=== PATIENT | female | born 1960 | race African-American/Black ===

== ENCOUNTER 2020-12-16 09:59 | Emergency (ER) | payer MEDICARE, SELFPAY ==
--- NOTE | 2020-12-16 10:17 | ED.URI ---
HPI - URI/Sore Throat General Chief Complaint: Upper Respiratory Infection Stated Complaint: Cough,Congestion Time Seen by Provider: 12/16/20 10:19 Source: patient and RN notes reviewed Mode of arrival: ambulatory Limitations: no limitations History of Present Illness HPI Narrative: 60 yo female presents to the [facility] with C/O SOB and cough. Patient reports that she has that COPD and has no plan to quit smoking. States that her primary provider normally gives her a Z-Elijah, prednisone and inhaler. Patient reports that she has plenty inhalers and nebulizer treatments at home. Has not used 1 since yesterday. Denies fevers. No known exposures to Covid. States she has received her vaccine. Denies chest pain. Denies abdominal pain. Denies fevers, nausea, vomiting or diarrhea. Patient in no acute distress Related Data Allergies Allergy/AdvReac Type Severity Reaction Status Date / Time No Known Allergies Allergy Verified 07/14/19 10:51 Review of Systems Review of Systems: Narrative: CONSTITUTIONAL: Denies fever, chills, or sweats. EYES: Denies visual changes, redness, or discharge. ENT: Denies rhinorrhea, congestion, sore throat, or otalgia. CARDIOVASCULAR: Denies chest pain, palpitations, or edema. RESPIRATORY: Reports cough with occasional dyspnea. GASTROINTESTINAL: Denies abdominal pain, nausea, vomiting, or diarrhea. MUSCULOSKELETAL: Denies back pain, joint pain, or myalgia. NEUROLOGIC: Denies headache, numbness, or weakness. PSYCHIATRIC: Denies anxiety or depression. All other systems reviewed are negative, except as documented in HPI. [facility] Past Medical History Medical History (Updated 12/16/20 @ 18:21 by Elsie Pop) COPD (chronic obstructive pulmonary disease) Hypertension Seasonal allergies Comments At the time of my signature, I reviewed and agree with the nursing past medical, surgical, social, and family history. There is no relevant family history pertinent to the patient complaint. Exam Narrative: Exam Narrative: GENERAL: This is a well-nourished, well-developed patient, in no apparent distress. HEAD: normocephalic, atraumatic. EYES: PERRL. Sclera clear/white. Vision is grossly intact. EARS: External ears normal, auditory canals clear and without drainage, TMs normal without perforation. Hearing grossly intact. NOSE: External nose normal with no obvious nasal discharge, nares without redness, no rhinorrhea. THROAT: Mucous membranes moist, posterior pharynx clear. NECK: Neck supple, non-tender without lymphadenopathy, masses or thyromegaly. CARDIOVASCULAR: Regular rate and rhythm without murmurs, gallops, or rubs. RESPIRATORY: Clear to auscultation. Breath sounds equal bilaterally. No wheezes, rales, or rhonchi. Strong cough noted with deep breathing. GASTROINTESTINAL: Abdomen soft, non-tender, nondistended. SKIN: warm, intact with no suspicious lesions or rash, good texture and turgor. NEURO: awake, alert, and oriented to person, place and time. There were no obvious focal neurologic abnormalities. EXTREMITIES: No joint tenderness, effusion, or edema noted. BACK: Nontender without deformity. Course Course Emergency Course: Discussed with patient to quit smoking. Discussed treatment plan along with using that home nebulizers 3 times a day. Patient agreed with plan Vital Signs Vital signs: Vital Signs Temperature 97.4 F L 12/16/20 10:23 Pulse Rate 64 12/16/20 10:23 Respiratory Rate 20 12/16/20 10:23 Blood Pressure 139/75 12/16/20 10:23 Pulse Oximetry 95 12/16/20 10:23 Temperature 97.4 F L 12/16/20 10:23 Pulse Rate 64 12/16/20 10:23 Respiratory Rate 20 12/16/20 10:23 Blood Pressure 139/75 12/16/20 10:23 Pulse Oximetry 95 12/16/20 10:23 Reviewed MDM - URI/Sore Throat MDM Narrative Medical decision making narrative: Discharge instructions reviewed with patient, as well as provided in writing per nursing staff. The instructions also include specific and s
[2020-12-16 10:23] VITALS: BP 139/75; PULSE 64; RESP 20; TEMP 36.3; O2SAT 95
== END 2020-12-16 10:56 | disposition home or self-care (01) ==
PROVIDERS: Emergency Provider Nurse Practitioner
DX: J40 Bronchitis, not specified as acute or chronic (principal); Z20.822 Contact with and (suspected) exposure to COVID-19; J44.9 Chronic obstructive pulmonary disease, unspecified; I10 Essential (primary) hypertension
CPT/HCPCS: 87426; 99213; C9803; G0463

== ENCOUNTER 2021-03-13 18:47 | Emergency (ER) | payer MEDICARE, SELFPAY ==
--- NOTE | ~2021-03-13 | XR_ITS ---
EXAMINATION: XR chest 2V EXAM DATE: 03/13/2021 19:10 INDICATION: Cough , hx copd TECHNIQUE: Frontal and lateral projections of the chest obtained and reviewed. Comparison is made to prior examination from 03/06/2013. FINDINGS: The lungs are clear. There are no pleural effusions. The cardiomediastinal silhouette is within normal limits. There is no pneumothorax suspected. The bones and soft tissues are unremarkab le. IMPRESSION: No acute cardiopulmonary findings. Reviewed, dictated and finalized at location A.
[2021-03-13 18:53] VITALS: BP 146/65; PULSE 65; RESP 20; TEMP 36.5; O2SAT 96
--- NOTE | 2021-03-13 18:58 | ED.URI ---
HPI - URI/Sore Throat General Chief Complaint: Upper Respiratory Infection Stated Complaint: Congestion Time Seen by Provider: 03/13/21 19:01 Source: patient and RN notes reviewed Mode of arrival: ambulatory Limitations: no limitations History of Present Illness HPI Narrative: 60-year-old female presents to the [facility] with cough, productive cough, for the last couple of days. States that she tried calling her primary care, was unable to get in. Patient does have a history of COPD, chronic bronchitis. Patient is a smoker, educated to stop smoking, patient states I will never stop smoking, its something I enjoy. Patient states that she used her home nebulizer treatment just prior to arrival. States she feels little bit better but think she needs some steroid and antibiotics. Denies chest pain, has intermittent shortness of breath. Last exacerbation she believed was December. Related Data Home Medications Medication Instructions Recorded Confirmed albuterol sulfate 2 inh INHALATION DIRECTED 03/13/21 03/13/21 ipratropium-albuterol 3 ml INHALATION DIRECTED 03/13/21 03/13/21 nebivolol [Bystolic] 10 mg PO DAILY 03/13/21 03/13/21 simvastatin 20 mg PO DAILY 03/13/21 03/13/21 spironolactone 25 mg PO DAILY 03/13/21 03/13/21 Allergies Allergy/AdvReac Type Severity Reaction Status Date / Time No Known Allergies Allergy Verified 03/13/21 18:53 Review of Systems Review of Systems: All systems reviewed & are unremarkable except as noted in HPI and below Constitutional: Constitutional: Reports no additional constitutional complaints, Denies chills and Denies fever(s) Eyes: Eyes: Reports no additional eye complaints ENT: Reports system reviewed and no additional complaints, except as documented and Denies sore throat Cardiovascular: Cardiovascular: Reports no additional cardiovascular complaints and Denies chest pain Respiratory: Respiratory: Reports cough, Reports dyspnea and Reports wheezing Gastrointestinal: Gastrointestinal: Reports no additional gastrointestinal complaints Musculoskeletal: Musculoskeletal: Reports no additional musculoskeletal complaints Integumentary/Breasts: Skin/Breast: Reports system reviewed and no additional complaints, except as docu Neurologic: Reports system reviewed and no additional complaints, except as documented Psychiatric: Psychiatric: Reports no additional psychiatric complaints Allergic/Immunologic: Allergic/Immunologic: Reports no additional allergic/immunologic complaints [facility] Past Medical History Medical History (Updated 07/06/21 @ 00:00 by Background Daemon) COPD (chronic obstructive pulmonary disease) Hypertension Seasonal allergies Comments At the time of my signature, I reviewed and agree with the nursing past medical, surgical, social, and family history. There is no relevant family history pertinent to the patient complaint. Exam Const: General: no acute distress and ill appearing chronically Nutritional Appearance: well nourished and obese Orientation/consciousness: patient oriented x3 HENMT: Head: normal to inspection Ears: external ears normal, TM's normal bilaterally and Abnormal EAC present Eyes: Pupils: Equal, round and reactive pupils present Neck: Neck: normal visual inspection, no lymphadenopathy and no meningeal signs Chest: Chest palpation & inspection: normal inspection of the chest Resp: Effort & Inspection: normal respiratory effort and no use of accessory muscles Auscultation: wheezes scattered wheezes and diminished lung sounds bilateral in the lower lung molina Cardio: Rate: regular rate Rhythm: regular rhythm Back/Spine/Pelvis: Back: no CVA tenderness Skin: General skin exam: normal color Rashes: no rashes Neuro: General: patient oriented x3, moves all extremities, no meningeal signs and no focal motor deficits Speech: normal speech Gait exam (Neuro): Normal gait present Extrem: General: normal to inspection Psych:
== END 2021-03-13 19:24 | disposition home or self-care (01) ==
PROVIDERS: Emergency Provider Nurse Practitioner; PCP Internal Medicine
DX: J40 Bronchitis, not specified as acute or chronic (principal); J44.9 Chronic obstructive pulmonary disease, unspecified; I10 Essential (primary) hypertension
CPT/HCPCS: 71046; 99213; G0463

== ENCOUNTER 2021-07-03 02:03 | Emergency (ER) | payer MEDICARE, SELFPAY ==
[2021-07-03] VITALS (14 sets, daily range): BP systolic 160–196; BP diastolic 70–173; PULSE 57–78; RESP 17–35; TEMP 36.6; O2SAT 95–100
--- NOTE | ~2021-07-03 | XR_ITS ---
EXAMINATION: XR chest 1V portable INDICATION: Shortness of breath TECHNIQUE: Portable AP chest at 0310 hours COMPARISON: 03/13/2021 FINDINGS: The lungs are free of acute opacities. There is no pleural effusion or pneumothorax. The ca rdiomediastinal silhouette is normal. IMPRESSION: 1. No acute cardiopulmonary abnormality. Reviewed, dictated and finalized at location A.
--- NOTE | 2021-07-03 02:23 | ECG_ITS ---
Measurements Intervals [place] Rate: 64 P: 68 NM: 159 QRS: 61 QRSD: 97 T: 37 QT: 404 QTc: 420 Interpretive Statements SINUS RHYTHM BASELINE ARTIFACT- I, II, III, AVR, AVL, AVF, V1-V6 NORMAL ECG Electronically Signed On 07-03-2021 8:48:31 CDT by Jaspreet Henriquez D.O.
--- NOTE | 2021-07-03 02:31 | ED.GENADULT ---
HPI - General Adult General Chief complaint: Shortness of Breath/Dyspnea Stated complaint: sob with tripod,87% ra- cpap placed Time Seen by Provider: 07/03/21 02:26 History of Present Illness HPI narrative: Patient 61-year-old female presents emerged department with chief complaint of shortness of breath. The patient reports she has history of COPD and has had a little of a cough for the last several days patient reports that she started getting shortness of breath this evening called EMS and was found to be saturating in the 80s by EMS. Patient was given nebulizer treatments in route and started on CPAP by EMS in the prehospital setting. Upon arrival to the emergency department patient is still tachypneic and reports that she still feels short of breath but is much better. Patient also reported she noticed that her blood pressure was running on the high side whenever all these events occurred. Related Data Home Medications Medication Instructions Recorded Confirmed albuterol sulfate 2 inh INHALATION DIRECTED 03/13/21 03/13/21 ipratropium-albuterol 3 ml INHALATION DIRECTED 03/13/21 03/13/21 nebivolol [Bystolic] 10 mg PO DAILY 03/13/21 03/13/21 simvastatin 20 mg PO DAILY 03/13/21 03/13/21 spironolactone 25 mg PO DAILY 03/13/21 03/13/21 Allergies Allergy/AdvReac Type Severity Reaction Status Date / Time No Known Allergies Allergy Verified 03/13/21 18:53 Review of Systems Review of Systems: A 10 system review of systems was completed on the patient and is negative except for what is stated in the HPI. Nursing and ancillary documentation was reviewed. PENDING SALE TO [facility] Past Medical History Medical History COPD (chronic obstructive pulmonary disease) Hypertension Seasonal allergies Exam Narrative: GENERAL: Well-appearing, well-nourished, and in no acute distress. HEAD: Normocephalic, atraumatic. EYES: PERRLA and EOMI. ENT: Nares clear, no rhinorrhea or epistaxis. Mucous membranes moist. NECK: Supple. CHEST: Scattered expiratory wheezes mild respiratory distress on CPAP. HEART: Regular rate and rhythm. No murmur heard. Normal peripheral pulses. ABDOMEN: Soft, nontender, nondistended, normal active bowel sounds. EXTREMITIES: Normal range of motion. No edema. SKIN: Warm, dry, no rash. NEURO: No focal deficits. Alert and oriented x3. PSYCH: Normal mood and affect. Course Course Emergency Course: EKG is sinus rhythm rate of [address] elevation or ST depression Vital Signs Vital signs: Vital Signs Temperature 36.6 C 07/03/21 02:06 Pulse Rate 72 07/03/21 02:06 Respiratory Rate 25 H 07/03/21 02:06 Blood Pressure 165/90 H 07/03/21 02:06 Pulse Oximetry 100 07/03/21 02:06 Temperature 36.6 C 07/03/21 02:06 Pulse Rate 57 L 07/03/21 03:54 Respiratory Rate 22 H 07/03/21 03:54 Blood Pressure 166/92 H 07/03/21 02:48 Pulse Oximetry 100 07/03/21 04:36 Medical Decision Making Vital Signs Vital Signs: Vital Signs Temperature 36.6 C 07/03/21 02:06 Pulse Rate 72 07/03/21 02:06 Respiratory Rate 25 H 07/03/21 02:06 Blood Pressure 165/90 H 07/03/21 02:06 Pulse Oximetry 100 07/03/21 02:06 Temperature 36.6 C 07/03/21 02:06 Pulse Rate 57 L 07/03/21 03:54 Respiratory Rate 22 H 07/03/21 03:54 Blood Pressure 166/92 H 07/03/21 02:48 Pulse Oximetry 100 07/03/21 04:36 Lab Data Result diagrams: 07/03/21 02:31 07/03/21 02:31 Labs: Lab Results 07/03/21 07/03/21 07/03/21 Range/Units 02:31 02:31 02:31 WBC 11.3 H (4.5-10.0) K/mm3 RBC 4.99 (4.2-5.4) M/mm3 Hgb 14.7 (12.0-15.0) g/dL Hct 45.0 (37.0-47.0) % MCV 90.2 (80-100) fl MCH 29.5 (26-34) pg MCHC 32.7 (32-36) g/dl RDW 14.5 (11.5-14.5) % Plt Count 205 (150-375) k/mm3 MPV 10.1 (7.4-10.4) fl Immature Gran % (Auto) 0.3 (0-0.5) % Neut % (Auto) 56.7 (45.5-73.1) %
[2021-07-03 02:36] LABS: Basophils Percent Auto 0.2 % (0.2-1.2); Eosinophils Absolute Auto 1.2 K/mm3 (0-0.3); Eosinophils Percent Auto 10.9 % (0-4.4); Hemoglobin 14.7 g/dL (12.0-15.0); Immature Granulocyte Absolute 0.03 K/mm3 (0.00-0.031); Immature Granulocyte Percent A 0.3 % (0-0.5); Lymphocytes Absolute Auto 2.86 K/mm3 (0.9-3.2); Lymphocytes Percent Auto 25.3 % (18.3-44.2); Mean Corpuscular HGB Conc 32.7 g/dl (32-36); Mean Corpuscular Hemoglobin 29.5 pg (26-34); Mean Corpuscular Volume 90.2 fl (80-100); Mean Platelet Volume 10.1 fl (7.4-10.4); Monocytes Absolute Auto 0.7 K/mm3 (0.1-0.6); Monocytes Percent Auto 6.6 % (2.6-8.5); Neutrophils Absolute Auto 6.4 K/mm3 (1.3-6.7); Neutrophils Percent Auto 56.7 % (45.5-73.1); Platelet Count Result 205 k/mm3 (150-375); Red Blood Count 4.99 M/mm3 (4.2-5.4); Red Cell Distribution Width 14.5 % (11.5-14.5); White Blood Count 11.3 K/mm3 (4.5-10.0)
[2021-07-03 02:50] LABS: Lactic Acid Reflex 0.8 mmol/L (0.7-2.1)
[2021-07-03 02:52] LABS: Alanine Aminotransferase 16 U/L (4-35); Albumin Level 4.4 g/dL (3.5-5.1); Alkaline Phosphatase 82 U/L (38-126); Anion Gap 7 mmol/L (8-16); Aspartate Amino Transferase 28 U/L (14-36); Bilirubin,Total 0.4 mg/dL (0.2-1.3); Blood Urea Nitrogen 14 mg/dL (7-17); Calcium 9.8 mg/dL (8.4-10.2); Carbon Dioxide 28 mmol/L (22-30); Chloride 106 mmol/L (98-107); Estimated CRCL calculation 70 ml/min; Estimated Glomerular Filt Rate > 60; Glucose 118 mg/dL (65-110); Magnesium 1.7 mg/dL (1.6-2.3); Potassium 4.1 mmol/L (3.4-5.0); Sodium 141 mmol/L (137-145)
[2021-07-03] MEDS: methylPREDNISolone SOD SUCC 125 MG VIAL IV PUSH (02:53)
[2021-07-03 02:56] LABS: Alveolar/Arterial O2 Gradient 79.7 mmHg; Base Excess ABG 3.1 mEq/l (+/-2.0); Fractional Inspired Oxygen 30 %; HCO3 ABG 27.2 mEq/l (22.0-26.0); Oxyhemoglobin 94.7 % THb (90.0-100.0); PCO2 ABG 39.8 mmHg (35.0-45.0); PO2 ABG 87.4 mmHg (80.0-100.0); PO2 FiO2 Ratio Arterial Blood 2.91 %; pH ABG 7.453 (7.350-7.450)
[2021-07-03 02:57] LABS: Device BIPAP; Modified Allen's Test Pass; Site Drawn RIGHT RADIAL
[2021-07-03 02:58] LABS: INR 0.9; Prothrombin Time 12.2 Seconds (11.1-14.7)
[2021-07-03 02:58] LABS: Expiratory Pressure 5 cmH2O; Inspiratory Pressure 12 cmH2O
[2021-07-03 02:59] LABS: Partial Thromboplastin Time 27.8 SECONDS (22.3-36.8)
[2021-07-03 03:03] LABS: NT Pro B Type Natriuretic Pept 60 pg/mL (5-100); Troponin I < 0.012 ng/mL (0.000-0.034)
[2021-07-03] MEDS: ALBUTEROL SULFATE (*SP) INHALER 2 PUFF INHALATION (03:06)
[2021-07-03] MEDS: ALBUTEROL SULFATE NEB 2.5 MG/0.5 ML INH 5 MG INHALATION (03:49)
[2021-07-03] MEDS: IPRATROPIUM BR 0.02% INH SOLN 0.5 MG/2.5 ML VIAL INHALATION (03:50)
[2021-07-03 04:49] LABS: Add Urine Microscopic? YES; Appearance Urine Clear (Clear); Bacteria Urine Trace /hpf; Bilirubin Urine Negative (Negative); Blood Urine 1+ (Negative); Color Urine Straw (Yellow); Glucose Urine UA Negative (Negative); Ketones Urine Negative (Negative); Leukocyte Esterase Ur Negative LEU/UL (Negative); Nitrate Urine Negative (Negative); Protein Urine 1+ mg/dL (Negative); RBC Urine 0-2 /hpf (0-2); Specific Grav Ur 1.005 (1.001-1.035); Squamous Epithelial Cell Urine Rare /hpf (Few); Urobilinogen Urine Negative mg/dL (<2.0); WBC Urine 0-3 /hpf
== END 2021-07-03 05:58 | disposition home or self-care (01) ==
PROVIDERS: Emergency Provider Emergency Medicine; PCP Internal Medicine
DX: J44.1 Chronic obstructive pulmonary disease with (acute) exacerbation (principal); I10 Essential (primary) hypertension
CPT/HCPCS: 36415; 36600; 71045; 80053; 81001; 82805; 83605; 83735; 83880; 84484; 85025; 85610; 85730; 93005; 94640; 96374; 99284; A9270; J2930

== ENCOUNTER 2022-01-25 16:47 | Emergency (ER) | payer MEDICARE, SELFPAY ==
[2022-01-25 16:58] VITALS: BP 151/70; PULSE 67; RESP 18; TEMP 36.9; O2SAT 96
--- NOTE | 2022-01-25 17:12 | ED.URI ---
HPI - URI/Sore Throat General Chief Complaint: Upper Respiratory Infection Stated Complaint: Congestion Time Seen by Provider: 01/25/22 17:12 Source: patient Mode of arrival: ambulatory Limitations: no limitations History of Present Illness HPI Narrative: 61-year-old female with history of COPD presents with complaint of cough, chest congestion for 4 days. Has had shortness of breath and chest tightness for past 2 days. States that her bronchitis and eczema. States that she needs prednisone and antibiotic. Had similar episode and Nghia and these medications helped her. Patient is a current everyday smoker. Normally smokes half a pack a day, due to symptoms has been smoking 3 cigarettes a day. Using her nebulizer which she only uses when she is having an exacerbation otherwise uses inhalers daily. Patient is speaking in complete sentences, no respiratory distress. All systems reviewed and negative except as noted above. Related Data Home Medications Medication Instructions Recorded Confirmed albuterol sulfate 2 inh INHALATION DIRECTED 03/13/21 01/25/22 ipratropium-albuterol 3 ml INHALATION DIRECTED 03/13/21 01/25/22 nebivolol [Bystolic] 10 mg PO DAILY 03/13/21 01/25/22 simvastatin 20 mg PO DAILY 03/13/21 01/25/22 spironolactone 25 mg PO DAILY 03/13/21 01/25/22 Allergies Allergy/AdvReac Type Severity Reaction Status Date / Time No Known Allergies Allergy Verified 01/25/22 17:03 Review of Systems Review of Systems: CONSTITUTIONAL: Denies fever, chills, or sweats. EYES: Denies visual changes, redness, or discharge. ENT: Denies rhinorrhea, congestion, sore throat, or otalgia. CARDIOVASCULAR: Denies chest pain, palpitations, or edema. RESPIRATORY: Reports cough, chest congestion and dyspnea. GASTROINTESTINAL: Denies abdominal pain, nausea, vomiting, or diarrhea. GENITOURINARY: Denies dysuria or hematuria. SKIN: Denies rash or itching. MUSCULOSKELETAL: Denies back pain, joint pain, or myalgia. NEUROLOGIC: Denies headache, numbness, or weakness. PSYCHIATRIC: Denies anxiety or depression. All other systems reviewed are negative, except as documented in HPI. [facility] Past Medical History Medical History COPD (chronic obstructive pulmonary disease) Hypertension Seasonal allergies Comments At time of signature, agree with nursing past medical, surgical, social and family history. There is no relevant family history pertinent to the presenting complaint. Exam Narrative: GENERAL: This is a well-nourished, well-developed patient, in no apparent distress. HEAD: normocephalic, atraumatic. EYES: PERRL. Sclera clear/white. Vision is grossly intact. EARS: External ears normal NOSE: External nose normal NECK: Neck supple, non-tender without lymphadenopathy, masses or thyromegaly. CARDIOVASCULAR: Regular rate and rhythm without murmurs, gallops, or rubs. RESPIRATORY: Coarse on expiration throughout all lung molina. No wheezing. Normal respiratory rate, no respiratory distress. SKIN: warm, Dry, intact with no suspicious lesions or rash, good texture and turgor. NEURO: awake, alert, and oriented to person, place and time. There were no obvious focal neurologic abnormalities. EXTREMITIES: Normal range of motion to all extremities. Course Course Level of Care: Express Care Visit Vital Signs Vital signs: Vital Signs Temperature 36.9 C 01/25/22 16:58 Pulse Rate 67 01/25/22 16:58 Respiratory Rate 18 01/25/22 16:58 Blood Pressure 151/70 H 01/25/22 16:58 Pulse Oximetry 96 01/25/22 16:58 Temperature 36.9 C 01/25/22 16:58 Pulse Rate 67 01/25/22 16:58 Respiratory Rate 18 01/25/22 16:58 Blood Pressure 151/70 H 01/25/22 16:58 Pulse Oximetry 96 01/25/22 16:58 Reviewed MDM - URI/Sore Throat MDM Narrative Medical decision making narrative: Patient is aware of diagnosis, understands and agrees to treatment plan. Anticipator
== END 2022-01-25 17:26 | disposition home or self-care (01) ==
PROVIDERS: Emergency Provider Nurse Practitioner Family
DX: J44.1 Chronic obstructive pulmonary disease with (acute) exacerbation (principal); I10 Essential (primary) hypertension; F17.210 Nicotine dependence, cigarettes, uncomplicated
CPT/HCPCS: 99213; G0463

== ENCOUNTER 2022-02-27 21:50 | Inpatient (IN) | payer MEDICARE, SELFPAY ==
--- NOTE | ~2022-02-27 | XR_ITS ---
EXAMINATION: XR chest 2V DATE: 03/05/2022 14:57 INDICATION: Cough TECHNIQUE: AP and lateral views of the chest are obtained. COMPARISON: 03/02/2022 FINDINGS: The lungs are free of acute opacities. There is no pleural effusion or pneumothorax. The ca rdiomediastinal silhouette is normal. There is moderate thoracic spondylosis. IMPRESSION: 1. No acute cardiopulmonary abnormality. Reviewed, dictated and finalized at location A.
--- NOTE | ~2022-02-27 | CT_ITS ---
EXAMINATION: CTA chest PE abdomen pel DATE: 03/02/2022 11:48 INDICATION: Tachypnea and abdominal pain. Elevated d-dimer. TECHNIQUE: Computed tomography (CT) pulmonary angiogram of the chest was performed with 100 mL Omnipa que-350 intravenous contrast. Additional 3D reconstructions utilizing coronal maximum intensity proje ction (MIP) were performed. CT of the abdomen and pelvis was performed with intravenous contrast util izing the same contrast bolus following a short delay. Automated exposure control and iterative recon struction technique were employed. The dose-length product was 2118.61 mGy-cm. COMPARISON: 10/21/2013 FINDINGS: Chest: Excellent contrast opacification of the pulmonary arteries. There is mild streak artifact from dense contrast in the superior vena cava and right atrium. There is moderate motion artifact at the upper l jolly zones and severe motion artifact in the lower lung zones which significantly decreases sensitivit y and specificity in the segmental and subsegmental pulmonary arteries the bilateral lower lung zones and more limited region of the right upper lobe. No definitive pulmonary emboli. Mild emphysema. No pneumonia, pulmonary edema or pleural effusion. Heart size is normal. Atherosclerotic coronary artery calcific location. No pericardial effusion. Thoracic aorta is normal in caliber with no dissection. A few mildly prominent lymph nodes. Normal-sized mediastinal and bilateral hilar which are likely sunshine ctive. No pathologically enlarged thoracic lymphadenopathy. Abdomen/pelvis: Liver, gallbladder, spleen, pancreas, bilateral adrenal glands and kidneys are right kidney are sofia l. 3 mm nonobstructing stone at a lower pole calyx of the left kidney. Bladder is normal. The uterus is not identified and has likely been surgically resected. Large wide mouthed supraumbilical ventral hernia containing multiple loops of nonobstructed large and small bowel. No free intraperitoneal gas or fluid. No pathologically enlarged abdominal or pelvic lymphadenopathy. There is calcified atherosc lerosis of the aorta and many of the other arteries. Severe bilateral lower lumbar facet osteoarthrit is. Mild bilateral hip and sacroiliac osteoarthritis. IMPRESSION: 1. No definite pulmonary embolism. Sensitivity and specificity dose significantly decreased in the la teral lower lung zones and small portion of the right upper lobe primarily to respiratory motion. 2. Mild emphysema. 3. 3 mm nonobstructing left renal stone. 4. Large [place] supraumbilical ventral hernia containing multiple loops of nonobstructed large and small bowel. Reviewed, dictated and finalized at location B. IMPRESSION: 1. No definite pulmonary embolism. Sensitivity and specificity dose significant ly decreased in the lateral lower lung zones and small portion of the right upp er lobe primarily to respiratory motion. 2. Mild emphysema. 3. 3 mm nonobstructing left renal stone. 4. Large [place] supraumbilical ventral hernia containing multiple loops of n onobstructed large and small bowel.
--- NOTE | ~2022-02-27 | XR_ITS ---
EXAMINATION: XR chest 2V Exam Date/Time: 02/27/2022 22:20 CDT HISTORY: sob/ COUGH, HX COPD, HX HTN Comparison: 07/03/2021. RESULT: Lines, tubes, and devices: None. Lungs and pleura: Clear. Cardiomediastinal silhouette: Stable cardiomediastinal silhouette. Other: No acute osseous or upper abdominal finding. IMPRESSION: No acute cardiopulmonary process. Reviewed, dictated and finalized at location K.
--- NOTE | ~2022-02-27 | US_ITS ---
EXAMINATION: US venous doppler UE DATE: 03/02/2022 15:00 INDICATION: Upper extremity swelling TECHNIQUE: Grayscale ultrasound images without and with compression and Doppler ultrasound images of the bilateral upper extremity veins were obtained. COMPARISON: None. FINDINGS: The right internal jugular vein, subclavian vein, axillary vein, brachial veins, basilic vein, cephal ic vein, radial vein, and ulnar vein are patent. The left internal jugular vein, subclavian vein, axillary vein, brachial veins, basilic vein, cephali c vein, radial vein, and ulnar vein are patent. IMPRESSION: 1. No evidence of deep venous thrombosis. Reviewed, dictated and finalized at location F.
--- NOTE | ~2022-02-27 | XR_ITS ---
EXAMINATION: XR chest 1V portable DATE: 03/02/2022 10:33 INDICATION: Shortness of breath. TECHNIQUE: A single frontal view of the chest was obtained. COMPARISON: Chest 2 views 02/27/2022 FINDINGS: The chest demonstrates clear lungs without pneumonia, pleural effusion, or pneumothorax. Th e heart size is normal. IMPRESSION: 1. No acute cardiopulmonary disease. Reviewed, dictated and finalized at location A.
--- NOTE | ~2022-02-27 | US_ITS ---
EXAMINATION: US venous doppler [facility] DATE: 03/02/2022 15:01 INDICATION: Shortness of breath, tachypnea TECHNIQUE: Starks scale images without and with compression and Doppler images of the bilateral lower e xtremity veins were obtained. COMPARISON: None FINDINGS: The right common femoral vein, profunda femoral vein, femoral vein, popliteal vein, peroneal trunk, p osterior tibial veins, and greater saphenous vein are patent. The left common femoral vein, profunda femoral vein, femoral vein, popliteal vein, peroneal trunk, po sterior tibial veins, and greater saphenous vein are patent. IMPRESSION: 1. Patent bilateral lower extremity veins. No evidence of deep venous thrombosis. Reviewed, dictated and finalized at location F. IMPRESSION: 1. Patent bilateral lower extremity veins. No evidence of deep venous thrombosi s.
[2022-02-27 21:54] VITALS: BP 171/78; PULSE 82; RESP 22; TEMP 36.8; O2SAT 93
--- NOTE | 2022-02-27 21:56 | ECG_ITS ---
Measurements Intervals [place] Rate: 74 P: 60 CT: 156 QRS: 57 QRSD: 84 T: 44 QT: 371 QTc: 414 Interpretive Statements SINUS RHYTHM NONSPECIFIC T-WAVE ABNORMALITY BORDERLINE ECG COMPARED TO ECG 07/03/2021 02:15:07 T-WAVE ABNORMALITY NOW PRESENT Electronically Signed On 02-28-2022 14:38:03 CDT by Winston Youngblood M.D.
[2022-02-27 22:14] LABS: Basophils Percent Auto 0.1 % (0.2-1.2); Eosinophils Absolute Auto 0.4 K/mm3 (0-0.3); Eosinophils Percent Auto 6.3 % (0-4.4); Hematocrit 43.5 % (37.0-47.0); Immature Granulocyte Absolute 0.03 K/mm3 (0.00-0.031); Immature Granulocyte Percent A 0.4 % (0-0.5); Lymphocytes Absolute Auto 1.34 K/mm3 (0.9-3.2); Lymphocytes Percent Auto 19.1 % (18.3-44.2); Mean Corpuscular HGB Conc 32.2 g/dl (32-36); Mean Corpuscular Hemoglobin 28.5 pg (26-34); Mean Corpuscular Volume 88.6 fl (80-100); Monocytes Absolute Auto 0.8 K/mm3 (0.1-0.6); Monocytes Percent Auto 11.1 % (2.6-8.5); Neutrophils Absolute Auto 4.4 K/mm3 (1.3-6.7); Platelet Count Result 183 k/mm3 (150-375); Red Blood Count 4.91 M/mm3 (4.2-5.4); Red Cell Distribution Width 14.7 % (11.5-14.5)
[2022-02-27 22:21] LABS: Alanine Aminotransferase 14 U/L (6-35); Albumin Level 4.3 g/dL (3.5-5.1); Alkaline Phosphatase 75 U/L (38-126); Anion Gap 8 mmol/L (8-16); Aspartate Amino Transferase 23 U/L (14-36); Bilirubin,Total 0.4 mg/dL (0.2-1.3); Blood Urea Nitrogen 7 mg/dL (7-17); Carbon Dioxide 24 mmol/L (22-30); Chloride 106 mmol/L (98-107); Estimated CRCL calculation 79 ml/min; Estimated Glomerular Filt Rate > 60; Glucose 106 mg/dL (65-110); Potassium 3.6 mmol/L (3.4-5.0); Sodium 138 mmol/L (137-145)
--- NOTE | 2022-02-27 23:45 | PC.NURSE ---
pt had c/o increased difficulty breathing. pt was 89-90% RA. pt placed on 2lnc and placed back in the waiting area. charge nurse notified in change in pt condition.
[2022-02-28] VITALS (24 sets, daily range): BP systolic 144–195; BP diastolic 53–130; PULSE 72–91; RESP 20–34; TEMP 36.4–36.7; O2SAT 92–97; BMI 38.0
--- NOTE | 2022-02-28 00:33 | PC.NURSE ---
pt 90% on 2lnc, increased to 3lnc at this time.
--- NOTE | 2022-02-28 01:23 | ED.GENADULT ---
HPI - General Adult General Chief complaint: Shortness of Breath/Dyspnea Stated complaint: sob Time Seen by Provider: 02/28/22 00:57 History of Present Illness HPI narrative: 61-year-old female presented the emergency department for evaluation of worsening shortness of breath. Patient does have history of COPD. Patient is still a smoker. Patient states she is not on home oxygen. Patient does use home breathing treatments. Patient states over the past 2 days she has had worsening shortness of breath. Patient denies any associated chest pain. Patient does have diarrhea but denies any nausea vomiting or abdominal pain. Patient is vaccinated against COVID and denies any fevers. Related Data Home Medications Medication Instructions Recorded Confirmed albuterol sulfate 90 mcg/actuation 2 inh inhalation Q6H PRN Shortness 03/13/21 02/28/22 aerosol inhaler Of Breath ipratropium 0.5 mg-albuterol 3 mg 3 ml inhalation Q6H PRN Shortness 03/13/21 02/28/22 (2.5 mg base)/3 mL nebulization Of Breath Or Wheezing soln nebivolol 10 mg tablet (Bystolic) 10 mg PO DAILY 03/13/21 02/28/22 simvastatin 20 mg tablet 20 mg PO DAILY 03/13/21 02/28/22 Allergies Allergy/AdvReac Type Severity Reaction Status Date / Time No Known Allergies Allergy Verified 02/27/22 21:56 Review of Systems Review of Systems: CONSTITUTIONAL: Denies fever, chills, or sweats. EYES: Denies visual changes, redness, or discharge. ENT: Denies rhinorrhea, congestion, sore throat, or otalgia. CARDIOVASCULAR: Denies chest pain, palpitations, or edema. RESPIRATORY: See HPI GASTROINTESTINAL: See HPI GENITOURINARY: Denies dysuria or hematuria. SKIN: Denies rash or itching. MUSCULOSKELETAL: Denies back pain, joint pain, or myalgia. NEUROLOGIC: Denies headache, numbness, or weakness. [facility] Past Medical History Medical History COPD (chronic obstructive pulmonary disease) Hypertension Seasonal allergies Family History Family History (Updated 02/28/22 @ 05:51 by Camille Contreras RN) Sibling Asthma Diabetes mellitus Hypertension Mother Cerebrovascular accident Hypertension Father Chronic obstructive pulmonary disease Social History Social History Smoking status: Current every day smoker Alcohol intake: never Substance use: never Spiritual care concerns: No Exam Narrative: APPEARANCE: Mild distress due to increased work of breathing HEAD: normocephalic, atraumatic. EYES: PERRLA/EOMI, conjunctivae clear. NOSE: Normal no drainage THROAT: Pharynx clear, no exudate. NECK: Supple. No adenopathy, no masses. RESPIRATORY: Increased work of breathing. Labored respirations. Extensive expiratory wheezing. Accessory muscle use CARDIOVASCULAR: Regular rate and rhythm without murmurs rubs or gallops. ABDOMINAL: Soft, nontender, nondistended, normal bowel sounds MUSCULOSKELETAL: Moves all extremities. NEURO: Alert. Cranial nerves II through XII intact. Grossly intact SKIN: Warm, dry. Normal Color Course Course Emergency Course: Patient received a continuous neb of 10 mg of albuterol, 2 mg of ipratropium and 125 mg of Solu-Medrol. Patient does feel improved patient does still have significant wheeze and significant work of breathing. Patient is also requiring oxygen. On room air patient dipped down to 87%. Patient is saturating well on 2 L of oxygen by nasal cannula. Case was discussed with the hospitalist and patient was accepted for admission. Vital Signs Vital signs: Vital Signs Temperature 98.2 F 02/27/22 21:54 Pulse Rate 82 02/27/22 21:54 Respiratory Rate 22 H 02/27/22 21:54 Blood Pressure 171/78 H 02/27/22 21:54 Pulse Oximetry 93 02/27/22 21:54 Oxygen Delivery Room Air 02/27/22 21:54 Temperature 98.1 F 02/28/22 05:46 Pulse Rate 81 02/28/22 05:46 Respiratory Rate 22 H 02/28/22 05
[2022-02-28] MEDS: ALBUTEROL SULFATE NEB 2.5 MG/3 ML INH 10 MG INHALATION (01:32)
[2022-02-28] MEDS: IPRATROPIUM BR 0.02% INH SOLN 0.5 MG/2.5 ML VIAL 2 MG INHALATION (01:32)
[2022-02-28] MEDS: methylPREDNISolone SOD SUCC 125 MG VIAL IV PUSH (02:02)
[2022-02-28 03:19] LABS: SARS-CoV-2 RNA PCR Negative
--- NOTE | 2022-02-28 05:45 | ADMGEN ---
This patient, Rosalind Palumbo, was admitted to Medical Room 249-01. Patient/family oriented to hospital policies and general routines including ID bracelet, bed and alarms, visiting hours, pain management, procedures, bathroom and other care routines, personal items, smoking policy, room service/diet, and visiting hours. Information on how to activate the Rapid Response Team has been discussed. Patient/Family are encouraged to report perceived risks to care and to ask questions if they do not understand what they are told or what they should do.
[2022-02-28] MEDS: methylPREDNISolone SOD SUCC 125 MG VIAL 60 MG IV PUSH ×3 (06:28→17:00)
[2022-02-28] MEDS: ALBUTEROL SULFATE NEB 2.5 MG/3 ML INH 5 MG INHALATION ×4 (08:16→23:51)
[2022-02-28] MEDS: IPRATROPIUM BR 0.02% INH SOLN 0.5 MG/2.5 ML VIAL INHALATION ×4 (08:16→23:51)
[2022-02-28] MEDS: SIMVASTATIN 20 MG TABLET PO (09:13)
[2022-02-28] MEDS: ENOXAPARIN 40 MG/0.4 ML SYRINGE SUB-Q (09:13)
[2022-02-28] MEDS: NEBIVOLOL HCL 5 MG TABLET 10 MG PO (09:20)
[2022-02-28 09:44] LABS: Influenza A QL RT-PCR Negative (Negative); Influenza B QL RT-PCR Negative (Negative)
--- NOTE | 2022-02-28 09:57 | PM.IMHP ---
H&P: HPI History of Present Illness Date/Time: 02/28/22 09:57 Chief Complaint: Shortness of breath Narrative: Date of service: 02/28/2022 Rosalind Palumbo is a 61-year-old female with a history of COPD, hypertension, and seasonal allergies who presented to the emergency department on 02/28/2022 with complaints of shortness of breath. She states her symptoms started 4 days ago. She was feeling well on Saturday when she went to awaiting. After this she noticed that her breathing started to get worse. The next couple days she became progressively more short of breath and had pretty significant wheezing. Her symptoms did not improve over the course of the following days and therefore she proceeded to the emergency department for further evaluation. She endorses a cough productive of clear phlegm. She denies any increase in cough or sputum production. She endorses dyspnea on exertion as well as conversational dyspnea. Her symptoms have been awakening her at night. She states her shortness of breath sometimes causes her to become anxious, which then makes her more short of breath. She has been using albuterol and ipratropium nebulizers at home and this is ?the only thing getting me through. On presentation to the ED, she was noted to be hypoxic at 87% and was placed on 2 L supplemental O2 per nasal cannula, laboratory workup was unremarkable, chest x-ray showed no acute cardiopulmonary disease, COVID PCR was negative. At the time of my evaluation, the patient states she is feeling improved, though still endorses audible wheezing and dyspnea. She is being admitted to the hospitalist service for further observation. Supervising physician for this history and physical is Dr. Jules Hahn. Review of Systems Review of Systems: All systems reviewed with pertinent positives and negatives as per HPI. Patient denies any recent sick contacts. She denies congestion or rhinorrhea. She denies any worsening of her seasonal allergies. She notes that she cannot tolerate perfumes or strong scents. She has had a decreased appetite over the past several days but she is tolerating oral intake. She does have occasional nausea but no episodes of vomiting. She denies chest pain. Denies palpitations. She does endorse some mild abdominal tightness. She reports having a regular formed bowel movement yesterday. Denies diarrhea. Denies abdominal bloating or cramping. Denies urinary symptoms including dysuria, hematuria, urgency, or frequency. Patient states she does not follow with a interventional tech. She has never had PFTs. Has never been formally diagnosed with COPD. [facility] Past Medical History Medical History (Updated 02/28/22 @ 10:17 by Perla Guevara PA-C) COPD (chronic obstructive pulmonary disease) Hypertension Seasonal allergies Surgical History Surgical History (Updated 02/28/22 @ 10:03 by Perla Guevara PA-C) History of bowel resection History of delivery History of hernia surgery History of hysterectomy History of tubal ligation Family History Family History (Updated 02/28/22 @ 10:05 by Perla Guevara PA-C) Sibling Asthma Diabetes mellitus Hypertension Mother Cerebrovascular accident Hypertension Breast cancer Father Chronic obstructive pulmonary disease Lung cancer Social History Social History (Updated 02/28/22 @ 10:11 by Perla Guevara PA-C) Social History: Ms. Palumbo lives at home with her of 47 years. She is independent in her daily activities living. She is on disability. Her primary care provider is Dr. Andrade in [place]. She designates her daughter, Virginie, as her surrogate decision maker. She would like to be a full code. Years smoked: 25 Smoking status: Current every day smoker Alcohol intake: never Substance use type: marijuana Other substance usage details: Marijuana use 2x/month Living arrangements: with family Spiritual care concerns: No Meds Home Me
[2022-03-01] VITALS (22 sets, daily range): BP systolic 142–176; BP diastolic 52–75; PULSE 76–98; RESP 18–26; TEMP 36.4–36.6; O2SAT 94–97
[2022-03-01] MEDS: methylPREDNISolone SOD SUCC 125 MG VIAL 60 MG IV PUSH ×2 (00:26→06:12)
[2022-03-01] MEDS: ALBUTEROL SULFATE NEB 2.5 MG/3 ML INH 5 MG INHALATION ×5 (03:57→20:28)
[2022-03-01] MEDS: IPRATROPIUM BR 0.02% INH SOLN 0.5 MG/2.5 ML VIAL INHALATION ×6 (03:57→22:05)
[2022-03-01] MEDS: ACETAMINOPHEN 325 MG TABLET 650 MG PO ×2 (06:12→20:22)
[2022-03-01 06:21] LABS: Hematocrit 42.1 % (37.0-47.0); Hemoglobin 13.8 g/dL (12.0-15.0); Mean Corpuscular HGB Conc 32.8 g/dl (32-36); Mean Corpuscular Hemoglobin 28.7 pg (26-34); Mean Corpuscular Volume 87.5 fl (80-100); Mean Platelet Volume 10.4 fl (7.4-10.4); Platelet Count Result 197 k/mm3 (150-375); Red Blood Count 4.81 M/mm3 (4.2-5.4); Red Cell Distribution Width 14.7 % (11.5-14.5); White Blood Count 11.5 K/mm3 (4.5-10.0)
[2022-03-01 06:44] LABS: Anion Gap 11 mmol/L (8-16); Blood Urea Nitrogen 14 mg/dL (7-17); Calcium 9.2 mg/dL (8.4-10.2); Carbon Dioxide 22 mmol/L (22-30); Chloride 106 mmol/L (98-107); Estimated CRCL calculation 70 ml/min; Estimated Glomerular Filt Rate > 60; Glucose 197 mg/dL (65-110); Potassium 3.9 mmol/L (3.4-5.0); Sodium 139 mmol/L (137-145)
[2022-03-01] MEDS: NEBIVOLOL HCL 5 MG TABLET 10 MG PO (09:30)
[2022-03-01] MEDS: ENOXAPARIN 40 MG/0.4 ML SYRINGE SUB-Q (09:30)
[2022-03-01] MEDS: methylPREDNISolone SOD SUCC 40 MG VIAL IV PUSH ×2 (11:47→18:22)
--- NOTE | 2022-03-01 15:26 | PM.IMPN ---
Progress Note: A&P Assessment and Plan (1) COPD with exacerbation: Code(s): J44.1 - Chronic obstructive pulmonary disease with (acute) exacerbation Status: Acute Assessment and Plan: Patient presented with increased shortness of breath and wheezing consistent with COPD exacerbation Audible wheezing present on exam Continue IV Solu-Medrol 40 mg q6h Continue DuoNebs q4h No change in sputum production. No indication for antibiotics at this time COVID-19 and influenza negative. Supportive care. Incentive spirometry. Expectorants as needed. Patient will benefit from outpatient PFTs and maintenance inhalers (2) Hypoxia: Code(s): R09.02 - Hypoxemia Status: Acute Assessment and Plan: Patient noted to be hypoxic on presentation CXR showed no acute cardiopulmonary finding [place] to be secondary to COPD exacerbation Currently requiring 3 L supplemental O2 per nasal cannula Continue to monitor oxygen saturations and wean O2 as tolerated (3) Hypertension: Code(s): I10 - Essential (primary) hypertension Status: Acute Assessment and Plan: Blood pressure reviewed and have been elevated above target but seem to be improving. Last BP 142/63 Continue nebivolol Monitor blood pressure trends Subjective Date/time seen: 03/01/22 15:26 Interval history: Date of service: 03/01/2022 Rosalind Palumbo is a 61-year-old female with a history of COPD, hypertension, and seasonal allergies who is seen in follow-up for COPD exacerbation. She continues to feel significantly short of breath today. She endorses wheezing. She also endorses conversational dyspnea and nonproductive cough. When she starts talking, this triggers her to call. She states she had a good night last night and got up and showered and was feeling pretty good. This morning she had some issues with her IV not working properly and had to be stuck multiple times. This caused her to become quite overwhelmed and she was upset about having to go through that. She stated these emotions triggered her to feel more short of breath. She was able to get up and walk around her room earlier this morning, but she does endorse pretty significant GUO. Her appetite is good. She denies abdominal pain, nausea, or vomiting. Did have a bowel movement this morning. She denies chest pain or tightness. Review of Systems Review of Systems: All systems reviewed & are unremarkable except as noted in HPI and below Exam Narrative: General: Obese, well-appearing 61-year-old female, sitting up in bed, comfortable, NARD Neuro: awake, alert and oriented x4, speech clear, no focal neuro deficits noted HEENMT: normocephalic, atraumatic, EOMI, sclerae anicteric Respiratory: Audible wheezing, diffuse wheezes in all lung molina on auscultation, conversational dyspnea noted, frequent cough, nonlabored breathing, able to speak in complete sentences, no retractions or accessory muscle use Cardio: regular rate, regular rhythm with S1-S2 Abdomen: Protuberant, nondistended, normoactive bowel sounds, soft, nontender to palpation Extremities: no edema, erythema, or tenderness to palpation, DP pulses 2+ bilaterally Skin: no rashes or lesions, warm and dry Psych: appropriate mood and affect, judgment and insight intact Objective Data Vital Signs Vital Signs: Vital Signs - 24 hr 02/28/22 16:00 02/28/22 20:44 02/28/22 20:47 Temperature Pulse Rate 74 72 Respiratory Rate 22 H Blood Pressure Pulse Oximetry 92 Oxygen Delivery Nasal Cannula Oxygen Flow Rate 3 02/28/22 20:54 02/28/22 20:42 02/28/22 20:00 Temperature 97.7 F Pulse Rate 77 78 85 Respiratory Rate 22 H 20 Blood Pressure 175/70 H Pulse Oximetry 93 Oxygen Delivery Oxygen Flow Rate 03/01/22 00:00 02/28/22 23:52 03/01/22 03:59 Temperature Pulse Rate 85 84 82 Respiratory Rate 20 18 Blood Pressure Pulse Oximetry Oxygen Delivery O
[2022-03-01] MEDS: SIMVASTATIN 20 MG TABLET PO (20:20)
[2022-03-02] VITALS (25 sets, daily range): BP systolic 111–179; BP diastolic 69–97; PULSE 60–97; RESP 22–41; TEMP 36–36.6; O2SAT 94–100
--- NOTE | 2022-03-02 | ECHO_ITS ---
Patient Info Name: Rosalind Palumbo Age: 61 years : 1960 Gender: Female Ht: 63 in Wt: 214 lbs BSA: 2.13 m2 HR: 88 bpm BP: 158 / 97 mmHg Heart Rhythm: Sinus Rhythm Technical Quality: Fair Exam Date: 03/02/2022 12:16 PM Exam Location: [facility] Patient Status: Inpatient Admit Date: 03/02/2022 Staff Ordering Physician: Perla Guevara PA-C Propeller Tester: Ira Julian RDCS Attending Provider: Perla Guevara PA-C Referring Physician: Ismael EASTON; Exam Type: CA echo doppler color flow Study Info Indications - sob, copd Complete two-dimensional, color flow and Doppler transthoracic echocardiogram is performed. Summary 1. Complete two-dimensional, color flow and Doppler transthoracic echocardiogram is performed. 2. Technically difficult exam reportedly performed while patient on mechanical ventilator support. 3. Hyperdynamic appearing left ventricular systolic function. 4. Grossly normal right ventricular size and contractility. 5. No significant valve abnormalities on Doppler, difficult visualization. Left Ventricle Left ventricular chamber dimension is normal. Left ventricular systolic function is hyperdynamic, estimated at 65-70%. The left ventricular diastolic function is grade I diastolic dysfunction. Right Ventricle Right ventricular chamber dimension is normal. Left Atria Left atrial chamber dimension is normal. Right Atria Right atrial chamber dimension is normal. Aortic Valve The aortic valve is not well visualized. There is no aortic valve stenosis. Pulmonic Valve The pulmonic valve is not well visualized. Mitral Valve The mitral valve has normal leaflets. Tricuspid Valve The tricuspid valve leaflets are not well visualized. Pericardium/Pleural The pericardium appears normal. Aorta The aortic root size at the sinus of Valsalva is normal. Left Ventricular Outflow Tract Name Value Normal LVOT 2D LVOT Diameter 1.9 cm LVOT Doppler LVOT Peak Gradient 2 mmHg LVOT Mean Gradient 1 mmHg LVOT VTI 12 cm LVOT VTI/AV VTI Ratio 0.6 LVOT Stroke Volume 34 ml LVOT CO 3.0 l/min LVOT CI 1.4 l/min/m2 Pulmonic Valve Name Value Normal PV Doppler PV Peak Gradient 4 mmHg Mitral Valve Name Value Normal MV Doppler MV Decel [place] 436 cm/s2 MV PHT 51 ms MV Area (
[2022-03-02] MEDS: methylPREDNISolone SOD SUCC 40 MG VIAL IV PUSH ×4 (00:51→18:01)
[2022-03-02] MEDS: IPRATROPIUM BR 0.02% INH SOLN 0.5 MG/2.5 ML VIAL INHALATION ×8 (01:00→20:35)
[2022-03-02] MEDS: ALBUTEROL SULFATE NEB 2.5 MG/3 ML INH 5 MG INHALATION ×6 (01:00→20:34)
[2022-03-02 05:08] LABS: Hematocrit 46.9 % (37.0-47.0); Hemoglobin 14.9 g/dL (12.0-15.0); Mean Corpuscular HGB Conc 31.8 g/dl (32-36); Mean Corpuscular Hemoglobin 28.9 pg (26-34); Mean Corpuscular Volume 90.9 fl (80-100); Mean Platelet Volume 11.1 fl (7.4-10.4); Platelet Count Result 147 k/mm3 (150-375); Red Blood Count 5.16 M/mm3 (4.2-5.4); White Blood Count 17.8 K/mm3 (4.5-10.0)
[2022-03-02 06:29] LABS: Anion Gap 6 mmol/L (8-16); Blood Urea Nitrogen 15 mg/dL (7-17); Calcium 8.8 mg/dL (8.4-10.2); Carbon Dioxide 30 mmol/L (22-30); Chloride 106 mmol/L (98-107); Estimated CRCL calculation 79 ml/min; Estimated Glomerular Filt Rate > 60; Glucose 146 mg/dL (65-110); Potassium 4.9 mmol/L (3.4-5.0); Sodium 142 mmol/L (137-145)
[2022-03-02 06:53] LABS: Alveolar/Arterial O2 Gradient 46.9 mmHg; Base Excess ABG 2.8 mEq/l (+/-2.0); Fractional Inspired Oxygen 28 %; HCO3 ABG 30.8 mEq/l (22.0-26.0); Oxygen Content ABG 20.3 %vol (16.0-22.0); Oxygen Saturation ABG 94.5 % (95.0-100.0); Oxyhemoglobin 94.2 % THb (90.0-100.0); PO2 ABG 79.7 mmHg (80.0-100.0); PO2 FiO2 Ratio Arterial Blood 2.85 %; Total Hemoglobin 15.3 g/dL (12.0-18.0); pH ABG 7.315 (7.350-7.450)
[2022-03-02 07:04] LABS: Device NASAL CANNULA; Modified Allen's Test Pass; PCO2 ABG 61.9 mmHg (35.0-45.0); Site Drawn RIGHT RADIAL
[2022-03-02] MEDS: NEBIVOLOL HCL 5 MG TABLET 10 MG PO (08:23)
[2022-03-02] MEDS: ENOXAPARIN 40 MG/0.4 ML SYRINGE SUB-Q (08:23)
[2022-03-02] MEDS: guaiFENesin 600 MG/DEXTROMETHORPHAN 30 MG SR TAB 12 HR 1 TAB PO ×2 (08:23→22:04)
[2022-03-02] MEDS: LORazepam INJ (*CRX) 2 MG/ML VIAL 0.5 MG IV PUSH (09:47)
--- NOTE | 2022-03-02 10:17 | PM.IMPN ---
Progress Note: A&P Assessment and Plan (1) Acute respiratory failure with hypercapnia: Code(s): J96.02 - Acute respiratory failure with hypercapnia Status: Acute Assessment and Plan: Change in status today with increased work of breathing, significant wheezing, and hypercapnia on ABG Initiate BiPAP 10/5 with a rate of 14 Will evaluate D-dimer. If elevated will proceed with CTA BNP pending. Echocardiogram ordered Repeat CXR pending Will follow-up with CT of the chest if CTA is not indicated Appreciate pulmonology consultation Plan to transition to IMU Returned to the patients room and she was in severe acute respiratory distress with RR in the 40s. She was being evaluated by She was started on BiPAP and taken to IMU. Supervising physician aware of patient condition. Discussed case with Pulmonology who will continue to follow. (2) COPD with exacerbation: Code(s): J44.1 - Chronic obstructive pulmonary disease with (acute) exacerbation Status: Acute Assessment and Plan: Patient presented with increased shortness of breath and wheezing consistent with COPD exacerbation Continue IV Solu-Medrol; increased to 60 mg q6h Continue DuoNebs scheduled q4h with prn nebs q2h Started on Azithromycin 500 mg IV q24h COVID-19 and influenza negative. Repeat COVID test due to risk factors including large family gathering. Will obtain viral respiratory panel. (3) Hypertension: Code(s): I10 - Essential (primary) hypertension Status: Acute Assessment and Plan: Blood pressure reviewed and have been elevated above target but seem to be improving. Last BP 142/63 Continue nebivolol Monitor blood pressure trends (4) Abdominal pain: Code(s): R10.9 - Unspecified abdominal pain Status: Acute Assessment and Plan: Patient complains of left sided abdominal pain Exam benign Reports regular bowel movements Hx of multiple abdominal surgeries Will obtain CT a/p Subjective Date/time seen: 03/02/22 10:17 Interval history: Date of service: 03/02/2022 Rosalind Palumbo is a 61-year-old female with a history of COPD, hypertension, and seasonal allergies who is seen in follow-up for COPD exacerbation. She feels much worse today. She had a bad night last night. Her wheezing has worsened and she cannot catch her breath. She is very frustrated because she feels like she has not been getting the help that she needs. This has caused her to become anxious which she feels has made her breathing even more difficult. She has been coughing more frequently but feels like she cannot get anything up. She feels like there is a lot of phlegm stuck in her chest that she cannot get rid of. She also complains of left-sided abdominal discomfort today. She states she always has the belly problems since having multiple abdominal surgeries. She has been having regular bowel movements. She denies bloating. She denies nausea or vomiting. Review of Systems Review of Systems: All systems reviewed & are unremarkable except as noted in HPI and below Exam Narrative: General: Obese, well-appearing 61-year-old female, sitting up in bed, acutely short of breath Neuro: awake, alert and oriented x4, speech clear, no focal neuro deficits noted HEENMT: normocephalic, atraumatic, EOMI, sclerae anicteric Respiratory: Audible wheezing, diffuse wheezes in all lung molina on auscultation, increased work of breathing, she was able to speak in complete sentences but occasionally had to pause to catch her breath, no tripoding or retractions Cardio: regular rate, regular rhythm with S1-S2 Abdomen: Protuberant, nondistended, normoactive bowel sounds, soft, nontender to palpation Extremities: no edema, erythema, or tenderness to palpation, DP pulses 2+ bilaterally Skin: no cyanosis, no rashes or lesions, warm and dry Psych: anxious, judgment and insight intact Objective Data Vital Signs Vital
[2022-03-02 10:51] LABS: D Dimer 0.65 ug/mL (<0.48)
[2022-03-02 10:59] LABS: NT Pro B Type Natriuretic Pept 735 pg/mL (5-100)
[2022-03-02] MEDS: ALBUTEROL SULFATE NEB 2.5 MG/0.5 ML INH (11:13)
--- NOTE | 2022-03-02 12:37 | PM.CNPUL ---
Assessment and Plan Assessment and plan (1) COPD with exacerbation: Code(s): J44.1 - Chronic obstructive pulmonary disease with (acute) exacerbation Status: Acute Assessment and Plan: patient with a history of tobacco use, mild apical predominant centrilobular emphysema on her CT scan of the chest on 03/02/2022, I have no PFTs, multiple COPD exacerbations ( 12/16/2020, 03/13/2021, 07/03/2021 and 01/25/2022), prior eosinophilia on 07/03/2021 at 1231/uL. the patient certainly has an eosinophilic component to her COPD and she may also have an asthma component which will be determined once I can take a better history from the patient. Presented on 02/28 with shortness of breath, wheezing, and treated for COPD exacerbation with IV Solu-Medrol, bronchodilators. Patient has had intermittent bronchospasm throughout the hospitalization and again this morning with increased work of breathing With a blood gas of 7.32/62/80 on 3 L nasal cannula and subsequently requiring BiPAP support. her D-dimer is positive in her CT angiogram is negative for PE, pneumonia, pleural effusions or pneumothorax. I will order upper extremity lower and lower extremity Dopplers to exclude DVT Continue Solu-Medrol 40 mg IV q.6, albuterol nebs 2.5 q.4 hours, ipratropium nebs 0.5 mg q.4 hours. Agree with azithromycin for now. Patient had 1 COVID RT PCR that that was negative. Given her deterioration I will repeat another COVID RT PCR test today. I will also ski X send an extended respiratory pathogen panel nasal swab. Currently the patient is on noninvasive ventilation with a rate of 20, tidal volume 400, EPAP 5, minimal inspiratory pressure 10, maximal inspiratory pressure 25, rise of 3, inspiratory time of 0.8 and 30%. Will continue this for now. I did give the intensivists of brief report about this patient so that he is aware in case she needs to go to the ICU Discussed with Perla Guevara. Will follow with you History of Present Illness History of Present Illness Consult date: 03/02/22 Chief complaint: COPD Narrative: 03/02/2022: This is a new pulmonary consult for COPD exacerbation. History obtained from the chart as the patient was in acute respiratory distress requiring emergent BiPAP and only able to provide minimal information. 61-year-old woman with a history of COPD, hypertension and seasonal allergies presented to the emergency room on 02/28/2022 with shortness of breath. The patient is a current tobacco user and has had 4 previous exacerbations requiring emergency room evaluation and treatment. The 1st was on 12/16/2020, the 2nd was on 03/13/2021, the 3rd was on 07/03/2021 with home saturations in the 80s and EMS placed her on CPAP and she was then placed on BiPAP 08/13 with a blood gas of 7.43/40/87. Of note the patient had a CBC with a white blood cell count of 11.3 and 10.9% [id number]/[id number]. The 4th exacerbation was 01/25/2022, Home medication listed albuterol inhaler and DuoNebs. she was discharged on prednisone and doxycycline. Currently on 02/28 she had 4 days of shortness of breath, wheezing and she denied a change in cough or sputum production. Symptoms were improved by albuterol and ipratropium nebulizers at home in the emergency department she had room air saturations of 87. She had diffuse wheezing. Her white blood cell count was 7.0 with 6.3% [id number]/uL, serum bicarb was 24, creatinine 0.7, chest x-ray with no acute cardiopulmonary process, COVID RT PCR test negative, influenza swab negative. Patient was admitted to the hospital with a COPD exacerbation and treated with methylprednisolone 125 x 1 followed by 40 mg IV q.6, albuterol and ipratropium nebulizers. On 03/01/2022 she had continued wheezing and was requiring 3 L nasal cannula oxygen. 03/02/22 The patient had worsening shortness of breath with wheezing With a blood gas on 3 L that demonstrated a pH of 7.32/62/80. Stat albuterol
[2022-03-02 17:57] LABS: SARS-CoV-2 RNA PCR Negative
[2022-03-02 18:02] LABS: Alveolar/Arterial O2 Gradient 64.3 mmHg; Base Excess ABG 4.3 mEq/l (+/-2.0); Fractional Inspired Oxygen 30 %; HCO3 ABG 31.5 mEq/l (22.0-26.0); Oxygen Content ABG 19.9 %vol (16.0-22.0); Oxygen Saturation ABG 95.5 % (95.0-100.0); Oxyhemoglobin 94.9 % THb (90.0-100.0); PCO2 ABG 57.4 mmHg (35.0-45.0); PO2 ABG 82.2 mmHg (80.0-100.0); PO2 FiO2 Ratio Arterial Blood 2.74 %; Total Hemoglobin 14.9 g/dL (12.0-18.0); pH ABG 7.357 (7.350-7.450)
[2022-03-02 18:07] LABS: Device NON-INVASIVE VENT; Modified Allen's Test Pass; Site Drawn RIGHT RADIAL
[2022-03-02 18:08] LABS: Non-Invasive Vent Rate 20 /MIN
[2022-03-02] MEDS: SIMVASTATIN 20 MG TABLET PO (22:04)
[2022-03-03] VITALS (33 sets, daily range): BP systolic 124–168; BP diastolic 50–69; PULSE 63–91; RESP 16–34; TEMP 35.9–36.8; O2SAT 95–100
[2022-03-03] MEDS: IPRATROPIUM BR 0.02% INH SOLN 0.5 MG/2.5 ML VIAL INHALATION ×7 (00:32→23:32)
[2022-03-03] MEDS: ALBUTEROL SULFATE NEB 2.5 MG/3 ML INH 5 MG INHALATION ×3 (00:32→07:57)
[2022-03-03] MEDS: methylPREDNISolone SOD SUCC 40 MG VIAL IV PUSH ×4 (00:33→19:44)
[2022-03-03 05:19] LABS: Hematocrit 44.8 % (37.0-47.0); Mean Corpuscular HGB Conc 31.3 g/dl (32-36); Mean Corpuscular Hemoglobin 28.3 pg (26-34); Mean Corpuscular Volume 90.7 fl (80-100); Mean Platelet Volume 10.1 fl (7.4-10.4); Platelet Count Result 215 k/mm3 (150-375); Red Blood Count 4.94 M/mm3 (4.2-5.4); Red Cell Distribution Width 15.2 % (11.5-14.5)
[2022-03-03 05:23] LABS: Anion Gap 3 mmol/L (8-16); Blood Urea Nitrogen 20 mg/dL (7-17); Calcium 9.2 mg/dL (8.4-10.2); Carbon Dioxide 33 mmol/L (22-30); Chloride 104 mmol/L (98-107); Estimated CRCL calculation 70 ml/min; Estimated Glomerular Filt Rate > 60; Glucose 164 mg/dL (65-110); Potassium 4.8 mmol/L (3.4-5.0); Sodium 140 mmol/L (137-145)
[2022-03-03 05:34] LABS: Alveolar/Arterial O2 Gradient 41.1 mmHg; Base Excess ABG 2.5 mEq/l (+/-2.0); Carboxyhemoglobin 0.3 % THb (0-2.0); Fractional Inspired Oxygen 30 %; HCO3 ABG 30.2 mEq/l (22.0-26.0); Methemoglobin ABG 0.4 %THb (0-1.5); Oxygen Saturation ABG 97.1 % (95.0-100.0); Oxyhemoglobin 96.3 % THb (90.0-100.0); PO2 ABG 102.3 mmHg (80.0-100.0); PO2 FiO2 Ratio Arterial Blood 3.41 %; Total Hemoglobin 14.7 g/dL (12.0-18.0)
[2022-03-03 05:35] LABS: Device NON-INVASIVE VENT; Modified Allen's Test Pass; Site Drawn LEFT RADIAL
[2022-03-03 05:36] LABS: Non-Invasive Expiratory Pressure 5 CMH2O; Non-Invasive Vent Rate 20 /MIN
[2022-03-03] MEDS: guaiFENesin 600 MG/DEXTROMETHORPHAN 30 MG SR TAB 12 HR 1 TAB PO ×2 (09:20→21:18)
[2022-03-03] MEDS: NEBIVOLOL HCL 5 MG TABLET 10 MG PO (09:20)
[2022-03-03] MEDS: ENOXAPARIN 40 MG/0.4 ML SYRINGE SUB-Q (09:22)
--- NOTE | 2022-03-03 09:40 | PM.PNPUL ---
Progress Note: A&P Assessment and Plan (1) Asthma-COPD overlap syndrome: Code(s): J44.9 - Chronic obstructive pulmonary disease, unspecified Status: Acute Assessment and Plan: Patient with a history of tobacco use, mild apical predominant centrilobular emphysema on her CT scan of the chest on 03/02/2022, I have no PFTs, multiple COPD exacerbations ( 12/16/2020, 03/13/2021, 07/03/2021 and 01/25/2022), prior eosinophilia on 07/03/2021 at 1231/uL. on further questioning the patient states that throughout her childhood and teenage years she had seasonal wheezing and was prescribed medicines such as Dimetapp for this. She was never hospitalized and had no significant limitations and was able to perform cheerleading in high school. In 1977 at the age of 28 she had anxiety and a wheezing episode and thought she was having a heart attack. She did seek medical attention at that time and was just told she had an anxiety attack. Given her a childhood history of wheezing and her eosinophilia and her tobacco history and mild apical predominant centrilobular emphysema I believe she has asthma COPD overlap. 03/02 Presented on 02/28 with shortness of breath, wheezing, and treated for COPD exacerbation with IV Solu-Medrol, bronchodilators. Patient has had intermittent bronchospasm throughout the hospitalization and again this morning with increased work of breathing With a blood gas of 7.32/62/80 on 3 L nasal cannula and subsequently requiring BiPAP support. her D-dimer is positive in her CT angiogram is negative for PE, pneumonia, pleural effusions or pneumothorax. I will order upper extremity lower and lower extremity Dopplers to exclude DVT Continue Solu-Medrol 40 mg IV q.6, albuterol nebs 2.5 q.4 hours, ipratropium nebs 0.5 mg q.4 hours. Agree with azithromycin for now. Patient had 1 COVID RT PCR that that was negative. Given her deterioration I will repeat another COVID RT PCR test today. I will also ski X send an extended respiratory pathogen panel nasal swab. Currently the patient is on noninvasive ventilation with a rate of 20, tidal volume 400, EPAP 5, minimal inspiratory pressure 10, maximal inspiratory pressure 25, rise of 3, inspiratory time of 0.8 and 30%. Will continue this for now. I did give the intensivists of brief report about this patient so that he is aware in case she needs to go to the ICU 03/03 Patient with a noninvasive ventilation with the AVAPS mode throughout the day yesterday an all night. ABG on a VATS rate of 20, tidal volume 400, EPAP 5, minimal inspiratory pressure 10, maximal inspiratory pressure 25 and 30% FiO2 was 7.32/60/102. This morning she said she was feeling better and I was able to take her off the BiPAP. She was on 2 L nasal cannula with saturations 97%. Overall the patient said she was feeling better. She still had shortness of breath at rest but said she was able to take deeper breaths. Patient has some phlegm that she is able to expectorate. White blood cell count is 15.0. patient is minimally improved this morning and I will continue Solu-Medrol 40 mg IV q.6 hours, albuterol 2.5 mg nebulized q.4 hours, ipratropium 0.5 mg nebulized q.4 hours, azithromycin 500 mg q.day (started 03/02), Mucinex DM 1 tab q.12 hours. Patient is currently off the noninvasive ventilation at at this time and is comfortable. I told her she can wear the noninvasive ventilation p.r.n. during the day today but that she should try to wear the mid the noninvasive ventilation When she sleeps as well as tonight. Will follow with you Subjective Date/time seen: 03/03/22 09:40 Interval history: 03/02/2022:? This is a new pulmonary consult for COPD exacerbation.? History obtained from the chart as the patient was in acute respiratory distress requiring emergent BiPAP and only able to provide minimal information. ? 61-year-old woman? with a history of COPD, hypertension and seasonal allergies presen
[2022-03-03] MEDS: ALBUTEROL SULFATE NEB 2.5 MG/3 ML INH INHALATION ×4 (12:44→23:32)
--- NOTE | 2022-03-03 15:00 | PM.IMPN ---
Progress Note: A&P Assessment and Plan (1) Acute respiratory failure with hypercapnia: Code(s): J96.02 - Acute respiratory failure with hypercapnia Status: Acute Assessment and Plan: 03/02 developed increased work of breathing, significant wheezing, and hypercapnia on ABG secondary to COPD Started on continuous BiPAP with improvement 03/03 taken off continuous BiPAP. Continue with BiPAP p.r.n. today and when sleeping CTA was negative for pulmonary embolism. Bilateral upper and lower extremity venous Dopplers negative for DVT BNP appropriate limits for age. Echocardiogram revealed hyperdynamic LV systolic function with grade 1 diastolic dysfunction. Not felt to be contributing to acute respiratory failure. Will attempt sputum culture given productive cough onset today Appreciate pulmonology consultation (2) COPD with exacerbation: Code(s): J44.1 - Chronic obstructive pulmonary disease with (acute) exacerbation Status: Acute Assessment and Plan: Patient presented with increased shortness of breath and wheezing consistent with COPD exacerbation Continue IV Solu-Medrol 40 mg q6h Continue DuoNebs scheduled q4h with prn nebs q2h Continue Azithromycin 500 mg IV q24h COVID-19 negative x2. Influenza negative. (3) Hypertension: Code(s): I10 - Essential (primary) hypertension Status: Acute Assessment and Plan: Blood pressure reviewed and have been elevated above target. Last BP 157/69 Continue nebivolol Monitor blood pressure trends (4) Abdominal pain: Code(s): R10.9 - Unspecified abdominal pain Status: Acute Assessment and Plan: Patient complains of left sided abdominal pain Exam benign Reports regular bowel movements Hx of multiple abdominal surgeries Will obtain CT a/p (5) Ventral hernia: Code(s): K43.9 - Ventral hernia without obstruction or gangrene Status: Acute Assessment and Plan: 03/02 Patient complained of left sided abdominal discomfort CT of the abdomen/pelvis showed large wide-mouth supraumbilical ventral hernia containing multiple loops of nonobstructive large and small bowel Patient is tolerating her diet. Abdomen is soft. No evidence of incarcerated or strangulated hernia Discussed the case with General surgery. Will plan for outpatient follow-up Continue daily monitoring/abdominal exams during admission Subjective Date/time seen: 03/03/22 15:00 Interval history: Date of service: 03/03/2022 Rosalind Palumbo is a 61-year-old female with a history of COPD, hypertension, and seasonal allergies who is seen in follow-up for COPD exacerbation. She feels a bit better today but states that she feels exhausted from all she has been through. She still endorses persistent wheezing. Her daughter is with her at the bedside and states that she can hear her wheezing from her seat. The patient states that she is coughing more frequently but is now able to expectorates and endorses yellow/green/white sputum. She actually feels better after coughing this up. She denies tightness in her chest. She denies abdominal pain but she does state that her abdomen feels firm sometimes after eating. Today she was able to tolerate her breakfast without any difficulty and no abdominal pain or firmness. She reports regular bowel movements. Denies urinary symptoms. Denies nausea, vomiting, fever, or chills. Review of Systems Review of Systems: All systems reviewed & are unremarkable except as noted in HPI and below Exam Narrative: General: Obese, well-appearing 61-year-old female, sitting up in bed, comfortable, no acute respiratory distress Neuro: awake, alert and oriented x4, speech clear, no focal neuro deficits noted HEENMT: normocephalic, atraumatic, EOMI, sclerae anicteric Respiratory: diffuse wheezes in all lung molina, no increased work of breathing, able to speak in complete sentences Cardio: regul
[2022-03-03] MEDS: SIMVASTATIN 20 MG TABLET PO (21:18)
[2022-03-04] VITALS (28 sets, daily range): BP systolic 145–169; BP diastolic 69–88; PULSE 62–89; RESP 22–32; TEMP 35.8–36.8; O2SAT 90–100
[2022-03-04] MEDS: methylPREDNISolone SOD SUCC 40 MG VIAL IV PUSH ×2 (00:01→05:28)
[2022-03-04] MEDS: ALBUTEROL SULFATE NEB 2.5 MG/3 ML INH INHALATION ×5 (04:24→19:50)
[2022-03-04] MEDS: IPRATROPIUM BR 0.02% INH SOLN 0.5 MG/2.5 ML VIAL INHALATION ×5 (04:24→19:50)
[2022-03-04 04:58] LABS: Hematocrit 46.2 % (37.0-47.0); Hemoglobin 14.3 g/dL (12.0-15.0); Mean Corpuscular Hemoglobin 28.5 pg (26-34); Mean Corpuscular Volume 92.2 fl (80-100); Mean Platelet Volume 10.2 fl (7.4-10.4); Platelet Count Result 206 k/mm3 (150-375); Red Blood Count 5.01 M/mm3 (4.2-5.4); Red Cell Distribution Width 15.2 % (11.5-14.5); White Blood Count 14.7 K/mm3 (4.5-10.0)
[2022-03-04 05:10] LABS: Anion Gap 2 mmol/L (8-16); Blood Urea Nitrogen 20 mg/dL (7-17); Calcium 8.8 mg/dL (8.4-10.2); Carbon Dioxide 34 mmol/L (22-30); Chloride 103 mmol/L (98-107); Estimated CRCL calculation 70 ml/min; Estimated Glomerular Filt Rate > 60; Glucose 142 mg/dL (65-110); Potassium 4.8 mmol/L (3.4-5.0); Sodium 139 mmol/L (137-145)
[2022-03-04] MEDS: NEBIVOLOL HCL 5 MG TABLET 10 MG PO (08:54)
[2022-03-04] MEDS: ENOXAPARIN 40 MG/0.4 ML SYRINGE SUB-Q (08:55)
[2022-03-04] MEDS: SALINE 0.65% NAS SOLN 44 ML BTL 1 SPRAY NASAL (10:17)
[2022-03-04] MEDS: guaiFENesin 600 MG/DEXTROMETHORPHAN 30 MG SR TAB 12 HR 1 TAB PO ×2 (10:17→20:29)
--- NOTE | 2022-03-04 10:49 | PM.PNPUL ---
Progress Note: A&P Assessment and Plan (1) Asthma-COPD overlap syndrome: Code(s): J44.9 - Chronic obstructive pulmonary disease, unspecified Status: Acute Assessment and Plan: Patient with a history of tobacco use, mild apical predominant centrilobular emphysema on her CT scan of the chest on 03/02/2022, I have no PFTs, multiple COPD exacerbations ( 12/16/2020, 03/13/2021, 07/03/2021 and 01/25/2022), prior eosinophilia on 07/03/2021 at 1231/uL. on further questioning the patient states that throughout her childhood and teenage years she had seasonal wheezing and was prescribed medicines such as Dimetapp for this. She was never hospitalized and had no significant limitations and was able to perform cheerleading in high school. In 1977 at the age of 28 she had anxiety and a wheezing episode and thought she was having a heart attack. She did seek medical attention at that time and was just told she had an anxiety attack. Given her a childhood history of wheezing and her eosinophilia and her tobacco history and mild apical predominant centrilobular emphysema I believe she has asthma COPD overlap. 03/02 Presented on 02/28 with shortness of breath, wheezing, and treated for COPD exacerbation with IV Solu-Medrol, bronchodilators. Patient has had intermittent bronchospasm throughout the hospitalization and again this morning with increased work of breathing With a blood gas of 7.32/62/80 on 3 L nasal cannula and subsequently requiring BiPAP support. her D-dimer is positive in her CT angiogram is negative for PE, pneumonia, pleural effusions or pneumothorax. I will order upper extremity lower and lower extremity Dopplers to exclude DVT Continue Solu-Medrol 40 mg IV q.6, albuterol nebs 2.5 q.4 hours, ipratropium nebs 0.5 mg q.4 hours. Agree with azithromycin for now. Patient had 1 COVID RT PCR that that was negative. Given her deterioration I will repeat another COVID RT PCR test today. I will also ski X send an extended respiratory pathogen panel nasal swab. Currently the patient is on noninvasive ventilation with a rate of 20, tidal volume 400, EPAP 5, minimal inspiratory pressure 10, maximal inspiratory pressure 25, rise of 3, inspiratory time of 0.8 and 30%. Will continue this for now. I did give the intensivists of brief report about this patient so that he is aware in case she needs to go to the ICU 03/03 Patient with a noninvasive ventilation with the AVAPS mode throughout the day yesterday an all night. ABG on a VATS rate of 20, tidal volume 400, EPAP 5, minimal inspiratory pressure 10, maximal inspiratory pressure 25 and 30% FiO2 was 7.32/60/102. This morning she said she was feeling better and I was able to take her off the BiPAP. She was on 2 L nasal cannula with saturations 97%. Overall the patient said she was feeling better. She still had shortness of breath at rest but said she was able to take deeper breaths. Patient has some phlegm that she is able to expectorate. White blood cell count is 15.0. patient is minimally improved this morning and I will continue Solu-Medrol 40 mg IV q.6 hours, albuterol 2.5 mg nebulized q.4 hours, ipratropium 0.5 mg nebulized q.4 hours, azithromycin 500 mg q.day (started 03/02), Mucinex DM 1 tab q.12 hours. Patient is currently off the noninvasive ventilation at at this time and is comfortable. I told her she can wear the noninvasive ventilation p.r.n. during the day today but that she should try to wear the mid the noninvasive ventilation When she sleeps as well as tonight. 03/04 patient remained off the noninvasive ventilation during the day yesterday and she wore her noninvasive ventilator overnight. She did get out of bed to the chair yesterday. Overall she says that she is slowly improving. She states that she is 25% back to her normal. She still has diffuse expiratory wheezes. The cough and phlegm production or improved and her phlegm is now clear. Currently s
--- NOTE | 2022-03-04 13:33 | PM.IMPN ---
Progress Note: A&P Assessment and Plan (1) Acute respiratory failure with hypercapnia: Code(s): J96.02 - Acute respiratory failure with hypercapnia Status: Acute Assessment and Plan: 03/02 developed increased work of breathing, significant wheezing, and hypercapnia on ABG secondary to COPD Started on continuous BiPAP with improvement 03/03 taken off continuous BiPAP. Continue with BiPAP when sleeping CTA was negative for pulmonary embolism. Bilateral upper and lower extremity venous Dopplers negative for DVT BNP appropriate limits for age. Echocardiogram revealed hyperdynamic LV systolic function with grade 1 diastolic dysfunction. Not felt to be contributing to acute respiratory failure. Sputum culture is pending Appreciate pulmonology consultation She is currently requiring 4 L supplemental O2 per nasal cannula (2) COPD with exacerbation: Code(s): J44.1 - Chronic obstructive pulmonary disease with (acute) exacerbation Status: Acute Assessment and Plan: Patient presented with increased shortness of breath and wheezing consistent with COPD exacerbation Continue IV Solu-Medrol. Decreased to 20 mg q.6 hours per pulmonology recommendations Continue DuoNebs scheduled q4h with prn nebs q2h Continue Azithromycin 2500 mg IV q24h COVID-19 negative x2. Influenza negative. (3) Hypertension: Code(s): I10 - Essential (primary) hypertension Status: Acute Assessment and Plan: Blood pressure reviewed and have been elevated above target. Last BP 161/74 Continue nebivolol Monitor blood pressure trends (4) Ventral hernia: Code(s): K43.9 - Ventral hernia without obstruction or gangrene Status: Acute Assessment and Plan: 03/02 Patient complained of left sided abdominal discomfort CT of the abdomen/pelvis showed large wide-mouth supraumbilical ventral hernia containing multiple loops of nonobstructive large and small bowel Patient is tolerating her diet. Abdomen is soft. No evidence of incarcerated or strangulated hernia Discussed the case with General surgery. Will plan for outpatient follow-up Continue daily monitoring/abdominal exams during admission Patient is asymptomatic Subjective Date/time seen: 03/04/22 13:33 Interval history: Date of service: 03/04/2022 Rosalind Palumbo is a 61-year-old female with a history of COPD, hypertension, and seasonal allergies who is seen in follow-up for COPD exacerbation. She is doing okay today. She states she just had a ?coughing attack? which was causing her to feel short of breath but she is doing better now. She states her cough is productive of mostly white sputum, but is occasionally yellow-green. She continues to endorse wheezing but states this is a little better. She has been doing well off the BiPAP. She is able to eat without much difficulty. She has not been getting out of bed due to exertion causing increased shortness of breath. Denies chest pain or tightness. Denies dizziness, lightheadedness, weakness. No abdominal pain. Reports her last bowel movement was . Denies abdominal pain. No cramping or bloating. Review of Systems Review of Systems: All systems reviewed & are unremarkable except as noted in HPI and below Exam Narrative: General: Obese, well-appearing 61-year-old female, sitting up in bed, comfortable, no acute respiratory distress Neuro: awake, alert and oriented x4, speech clear, no focal neuro deficits noted HEENMT: normocephalic, atraumatic, EOMI, sclerae anicteric Respiratory: diffuse expiratory wheezes in all lung molina, nonlabored breathing, able to speak in complete sentences Cardio: regular rate, regular rhythm with S1-S2 Abdomen: Protuberant, nondistended, normoactive bowel sounds, soft, nontender to palpation Extremities: no edema, erythema, or tenderness to palpation, DP pulses 2+ bilaterally Skin: no cyanosis, no rashes or lesions, warm an
[2022-03-04] MEDS: methylPREDNISolone SOD SUCC 40 MG VIAL 20 MG IV PUSH ×2 (14:22→17:56)
[2022-03-04] MEDS: DOCUSATE SODIUM 100 MG CAPSULE PO (20:29)
[2022-03-04] MEDS: SIMVASTATIN 20 MG TABLET PO (20:29)
[2022-03-04] MEDS: ACETAMINOPHEN 325 MG TABLET 650 MG PO (20:32)
[2022-03-04] MEDS: diphenhydrAMINE HCl CAP 25 MG CAPSULE PO (20:32)
[2022-03-05] VITALS (28 sets, daily range): BP systolic 140–187; BP diastolic 62–88; PULSE 55–87; RESP 20–28; TEMP 35.9–36.6; O2SAT 96–100
[2022-03-05] MEDS: ALBUTEROL SULFATE NEB 2.5 MG/3 ML INH INHALATION ×6 (00:06→21:39)
[2022-03-05] MEDS: IPRATROPIUM BR 0.02% INH SOLN 0.5 MG/2.5 ML VIAL INHALATION ×6 (00:06→21:39)
[2022-03-05] MEDS: methylPREDNISolone SOD SUCC 40 MG VIAL 20 MG IV PUSH ×5 (00:43→23:42)
[2022-03-05 09:33] LABS: Hemoglobin 13.8 g/dL (12.0-15.0); Mean Corpuscular HGB Conc 31.4 g/dl (32-36); Mean Corpuscular Hemoglobin 28.4 pg (26-34); Mean Corpuscular Volume 90.5 fl (80-100); Mean Platelet Volume 10.3 fl (7.4-10.4); Platelet Count Result 189 k/mm3 (150-375); Red Blood Count 4.86 M/mm3 (4.2-5.4); Red Cell Distribution Width 14.8 % (11.5-14.5); White Blood Count 14.4 K/mm3 (4.5-10.0)
[2022-03-05] MEDS: NEBIVOLOL HCL 5 MG TABLET 10 MG PO (09:37)
[2022-03-05] MEDS: DOCUSATE SODIUM 100 MG CAPSULE PO (09:38)
[2022-03-05] MEDS: guaiFENesin 600 MG/DEXTROMETHORPHAN 30 MG SR TAB 12 HR 1 TAB PO ×2 (09:38→20:35)
[2022-03-05] MEDS: polyethylene glycoL 3350 17 GM POWD.PACK PO (09:38)
[2022-03-05] MEDS: ENOXAPARIN 40 MG/0.4 ML SYRINGE SUB-Q (09:38)
[2022-03-05 09:51] LABS: Anion Gap 7 mmol/L (8-16); Blood Urea Nitrogen 23 mg/dL (7-17); Calcium 8.6 mg/dL (8.4-10.2); Carbon Dioxide 31 mmol/L (22-30); Chloride 100 mmol/L (98-107); Estimated CRCL calculation 62 ml/min; Estimated Glomerular Filt Rate > 60; Glucose 193 mg/dL (65-110); Potassium 4.3 mmol/L (3.4-5.0); Sodium 138 mmol/L (137-145)
[2022-03-05 09:56] LABS: NT Pro B Type Natriuretic Pept 261 pg/mL (5-100)
--- NOTE | 2022-03-05 10:48 | P.PNIM_ITS ---
Progress Note: A&P Assessment and Plan (1) Acute respiratory failure with hypercapnia: Code(s): J96.02 - Acute respiratory failure with hypercapnia Status: Acute Assessment and Plan: 03/02 developed increased work of breathing, significant wheezing, and hypercapnia on ABG secondary to COPD * Started on continuous BiPAP with improvement * 03/03 taken off continuous BiPAP. Can use BiPAP at night/when sleeping as needed. * CTA was negative for pulmonary embolism. Bilateral upper and lower extremity venous Dopplers negative for DVT * BNP appropriate limits for age. Echocardiogram revealed hyperdynamic LV systo lic function with grade 1 diastolic dysfunction. Not felt to be contributing to acute respiratory failure. * Sputum culture with growth of normal oropharyngeal ying * Obtain repeat CXR today as patient endorses choking on phlegm to evaluate for aspiration * Appreciate pulmonology consultation * She is currently requiring 3 L supplemental O2 per nasal cannula (2) COPD with exacerbation: Code(s): J44.1 - Chronic obstructive pulmonary disease with (acute) exacerbation Status: Acute Assessment and Plan: Patient presented with increased shortness of breath and wheezing consistent with COPD exacerbation * Continue IV Solu-Medrol. Decreased to 20 mg q.6 hours per pulmonology recommendations * Continue DuoNebs scheduled q4h with prn nebs q2h * Continue Azithromycin 250 mg IV q24h * COVID-19 negative x2. Influenza negative. * Respiratory viral pathogen panel is pending. Pt reports recent sick contacts (grandchild had cold symptoms). (3) Hypertension: Code(s): I10 - Essential (primary) hypertension Status: Acute Assessment and Plan: Blood pressure reviewed and have been elevated above target. Last BP 157/62 * Continue nebivolol * Concern for beta 2 blockade causing bronchospasm. Will monitor clinically. If no improvement, will likely plan to discontinue beta ran and initiate alt ernative antihypertensive * Reports history of angioedema to lisinopril. Will avoid FILOMENA/ARB * Would plan to transition to amlodipine, however pt concerned of lower extremity swelling. Limited options with FILOMENA/ARB contraindication therefore would trial and monitor closely. (4) Ventral hernia: Code(s): K43.9 - Ventral hernia without obstruction or gangrene Status: Acute Assessment and Plan: 03/02 Patient complained of left sided abdominal discomfort * CT of the abdomen/pelvis showed large wide-mouth supraumbilical ventral hernia containing multiple loops of nonobstructive large and small bowel * Patient is tolerating her diet. Abdomen is soft. No evidence of incarcerated or strangulated hernia * Discussed the case with General surgery. Will plan for outpatient follow-up * Continue daily monitoring/abdominal exams during admission Subjective Date/time seen: 03/05/22 10:48 Interval history: Date of service: 03/05/2022 Rosalind Palumbo is a 61-year-old female with a history of COPD, hypertension, and seasonal allergies who is seen in follow-up for COPD exacerbation. She feels about the same today. She states she has been coughing more frequently and ?it just gets the best of me.? She gets fatigued after coughing spells. She endorses copious amounts of white, occasionally yellow, phlegm. Today states she is having drainage that she is ?choking? on. States her wheezing is unchanged. She has been having a hard time using the BiPAP and she feels as though it is suffocating her. This is making it hard for her to sleep. She endorses s
--- NOTE | 2022-03-05 10:48 | PM.IMPN ---
Progress Note: A&P Assessment and Plan (1) Acute respiratory failure with hypercapnia: Code(s): J96.02 - Acute respiratory failure with hypercapnia Status: Acute Assessment and Plan: 03/02 developed increased work of breathing, significant wheezing, and hypercapnia on ABG secondary to COPD Started on continuous BiPAP with improvement 03/03 taken off continuous BiPAP. Can use BiPAP at night/when sleeping as needed. CTA was negative for pulmonary embolism. Bilateral upper and lower extremity venous Dopplers negative for DVT BNP appropriate limits for age. Echocardiogram revealed hyperdynamic LV systolic function with grade 1 diastolic dysfunction. Not felt to be contributing to acute respiratory failure. Sputum culture with growth of normal oropharyngeal ying Obtain repeat CXR today as patient endorses choking on phlegm to evaluate for aspiration Appreciate pulmonology consultation She is currently requiring 3 L supplemental O2 per nasal cannula (2) COPD with exacerbation: Code(s): J44.1 - Chronic obstructive pulmonary disease with (acute) exacerbation Status: Acute Assessment and Plan: Patient presented with increased shortness of breath and wheezing consistent with COPD exacerbation Continue IV Solu-Medrol. Decreased to 20 mg q.6 hours per pulmonology recommendations Continue DuoNebs scheduled q4h with prn nebs q2h Continue Azithromycin 250 mg IV q24h COVID-19 negative x2. Influenza negative. Respiratory viral pathogen panel is pending. Pt reports recent sick contacts (grandchild had cold symptoms). (3) Hypertension: Code(s): I10 - Essential (primary) hypertension Status: Acute Assessment and Plan: Blood pressure reviewed and have been elevated above target. Last BP 157/62 Continue nebivolol Concern for beta 2 blockade causing bronchospasm. Will monitor clinically. If no improvement, will likely plan to discontinue beta ran and initiate alternative antihypertensive Reports history of angioedema to lisinopril. Will avoid FILOMENA/ARB Would plan to transition to amlodipine, however pt concerned of lower extremity swelling. Limited options with FILOMENA/ARB contraindication therefore would trial and monitor closely. (4) Ventral hernia: Code(s): K43.9 - Ventral hernia without obstruction or gangrene Status: Acute Assessment and Plan: 03/02 Patient complained of left sided abdominal discomfort CT of the abdomen/pelvis showed large wide-mouth supraumbilical ventral hernia containing multiple loops of nonobstructive large and small bowel Patient is tolerating her diet. Abdomen is soft. No evidence of incarcerated or strangulated hernia Discussed the case with General surgery. Will plan for outpatient follow-up Continue daily monitoring/abdominal exams during admission Subjective Date/time seen: 03/05/22 10:48 Interval history: Date of service: 03/05/2022 Rosalind Palumbo is a 61-year-old female with a history of COPD, hypertension, and seasonal allergies who is seen in follow-up for COPD exacerbation. She feels about the same today. She states she has been coughing more frequently and ?it just gets the best of me.? She gets fatigued after coughing spells. She endorses copious amounts of white, occasionally yellow, phlegm. Today states she is having drainage that she is ?choking? on. States her wheezing is unchanged. She has been having a hard time using the BiPAP and she feels as though it is suffocating her. This is making it hard for her to sleep. She endorses some mild abdominal discomfort today ?like a knot? in her abdomen. She has been passing flatus but has not had a bowel movement and is feeling constipated. She would like to try a suppository. She is tolerating her diet. She denies dizziness, lightheadedness, weakness. Review of Systems Review of Systems: All systems reviewed & are unremarkable except as noted in HPI
--- NOTE | 2022-03-05 12:04 | ECG_ITS ---
Measurements Intervals [place] Rate: 58 P: 69 HI: 128 QRS: 64 QRSD: 93 T: 55 QT: 405 QTc: 398 Interpretive Statements SINUS BRADYCARDIA OTHERWISE NORMAL ECG COMPARED TO ECG 02/27/2022 22:00:33 SINUS BRADYCARDIA NOW PRESENT Electronically Signed On 03-05-2022 15:53:55 CDT by Neil Salvador M.D.
[2022-03-05] MEDS: SIMVASTATIN 20 MG TABLET PO (20:35)
[2022-03-06] VITALS (24 sets, daily range): BP systolic 149–176; BP diastolic 70–92; PULSE 45–85; RESP 12–26; TEMP 36.7–37.1; O2SAT 92–97
[2022-03-06] MEDS: ALBUTEROL SULFATE NEB 2.5 MG/3 ML INH INHALATION ×5 (00:41→20:46)
[2022-03-06] MEDS: IPRATROPIUM BR 0.02% INH SOLN 0.5 MG/2.5 ML VIAL INHALATION ×5 (00:41→20:47)
[2022-03-06 04:47] LABS: Hematocrit 45.8 % (37.0-47.0); Hemoglobin 14.4 g/dL (12.0-15.0); Mean Corpuscular HGB Conc 31.4 g/dl (32-36); Mean Corpuscular Hemoglobin 28.6 pg (26-34); Mean Corpuscular Volume 90.9 fl (80-100); Mean Platelet Volume 10.5 fl (7.4-10.4); Platelet Count Result 203 k/mm3 (150-375); Red Blood Count 5.04 M/mm3 (4.2-5.4); Red Cell Distribution Width 14.7 % (11.5-14.5); White Blood Count 16.2 K/mm3 (4.5-10.0)
[2022-03-06 05:01] LABS: Anion Gap 2 mmol/L (8-16); Blood Urea Nitrogen 22 mg/dL (7-17); Calcium 8.4 mg/dL (8.4-10.2); Carbon Dioxide 34 mmol/L (22-30); Chloride 102 mmol/L (98-107); Estimated CRCL calculation 70 ml/min; Estimated Glomerular Filt Rate > 60; Glucose 117 mg/dL (65-110); Potassium 4.7 mmol/L (3.4-5.0); Sodium 138 mmol/L (137-145)
[2022-03-06] MEDS: methylPREDNISolone SOD SUCC 40 MG VIAL 20 MG IV PUSH (05:13)
[2022-03-06] MEDS: guaiFENesin 600 MG/DEXTROMETHORPHAN 30 MG SR TAB 12 HR 1 TAB PO ×2 (09:35→19:58)
[2022-03-06] MEDS: NEBIVOLOL HCL 5 MG TABLET 10 MG PO (09:35)
[2022-03-06] MEDS: ENOXAPARIN 40 MG/0.4 ML SYRINGE SUB-Q (09:36)
[2022-03-06] MEDS: DOCUSATE SODIUM 100 MG CAPSULE PO ×2 (09:38→19:58)
[2022-03-06] MEDS: predniSONE 10 MG TABLET 50 MG PO (09:43)
--- NOTE | 2022-03-06 15:57 | PM.IMPN ---
Progress Note: A&P Assessment and Plan (1) Acute respiratory failure with hypercapnia: Code(s): J96.02 - Acute respiratory failure with hypercapnia Status: Acute Assessment and Plan: 03/02 developed increased work of breathing, significant wheezing, and hypercapnia on ABG secondary to COPD Started on continuous BiPAP with improvement 03/03 taken off continuous BiPAP. Can use BiPAP at night/when sleeping as needed. Have not used in over 24 hours. CTA was negative for pulmonary embolism. Bilateral upper and lower extremity venous Dopplers negative for DVT BNP appropriate limits for age. Echocardiogram revealed hyperdynamic LV systolic function with grade 1 diastolic dysfunction. Not felt to be contributing to acute respiratory failure. Sputum culture with growth of normal oropharyngeal ying No evidence of aspiration on CXR Appreciate pulmonology consultation Has been weaned to 1 L supplemental O2 per nasal cannula, previously required up to 4 L (2) COPD with exacerbation: Code(s): J44.1 - Chronic obstructive pulmonary disease with (acute) exacerbation Status: Acute Assessment and Plan: Patient presented with increased shortness of breath and wheezing consistent with COPD exacerbation IV Solu-Medrol weaned to prednisone 50 mg daily Continue DuoNebs scheduled q4h with prn nebs q2h Completed 5 days of IV azithromycin COVID-19 negative x2. Influenza negative. Respiratory viral pathogen panel is pending. Pt reports recent sick contacts (grandchild had cold symptoms). (3) Hypertension: Code(s): I10 - Essential (primary) hypertension Status: Acute Assessment and Plan: Blood pressure reviewed and have been elevated above target. Last BP 155/74 Continue nebivolol Concern for beta 2 blockade causing bronchospasm, however patient has clinical improvement today, therefore will continue with nebivolol Reports history of angioedema to lisinopril. Will avoid FILOMENA/ARB (4) Ventral hernia: Code(s): K43.9 - Ventral hernia without obstruction or gangrene Status: Acute Assessment and Plan: 03/02 Patient complained of left sided abdominal discomfort CT of the abdomen/pelvis showed large wide-mouth supraumbilical ventral hernia containing multiple loops of nonobstructive large and small bowel Patient is tolerating her diet. Abdomen is soft. No evidence of incarcerated or strangulated hernia Discussed the case with General surgery. Will plan for outpatient follow-up Continue daily monitoring/abdominal exams during admission Subjective Date/time seen: 03/06/22 15:57 Interval history: Date of service: 03/05/2022 Rosalind Palumbo is a 61-year-old female with a history of COPD, hypertension, and seasonal allergies who is seen in follow-up for COPD exacerbation. She is starting to feel better today. She states she is getting stronger every day. She continues to endorse wheezing but feels that it is a bit improved. Continues to endorse cough productive of yellow phlegm. She states that her oxygen was taken off this morning but then on recheck her this sats were a bit lower and she was restarted on oxygen. She had a regular bowel movement yesterday. Denies abdominal pain. Tolerating her diet. No nausea or vomiting. Denies chest pain. Review of Systems Review of Systems: All systems reviewed & are unremarkable except as noted in HPI and below Exam Narrative: General: Obese, well-appearing 61-year-old female, sitting up in bed, comfortable, no acute respiratory distress Neuro: awake, alert and oriented x4, speech clear, no focal neuro deficits noted HEENMT: normocephalic, atraumatic, EOMI, sclerae anicteric Respiratory: Post-expiratory wheezes in all lung molina, nonlabored breathing, able to speak in complete sentences Cardio: regular rate, regular rhythm with S1-S2 Abdomen: Protuberant, nondistended, normoactive bowel sounds, soft, nontende
--- NOTE | 2022-03-06 17:24 | PC.NURSE ---
This patient, Rosalind Palumbo, was received from [ imu] on 03/06/22 at 1705. Patient/family oriented to unit policies and routines
[2022-03-06] MEDS: SIMVASTATIN 20 MG TABLET PO (22:16)
[2022-03-07] VITALS (24 sets, daily range): BP systolic 141–165; BP diastolic 60–66; PULSE 57–90; RESP 17–24; TEMP 36.6–36.8; O2SAT 92–97
[2022-03-07] MEDS: IPRATROPIUM BR 0.02% INH SOLN 0.5 MG/2.5 ML VIAL INHALATION ×6 (00:37→20:04)
[2022-03-07] MEDS: ALBUTEROL SULFATE NEB 2.5 MG/3 ML INH INHALATION ×5 (00:38→20:04)
[2022-03-07 06:24] LABS: Hematocrit 43.8 % (37.0-47.0); Hemoglobin 14.3 g/dL (12.0-15.0); Mean Corpuscular HGB Conc 32.6 g/dl (32-36); Mean Corpuscular Hemoglobin 28.8 pg (26-34); Mean Corpuscular Volume 88.1 fl (80-100); Mean Platelet Volume 10.1 fl (7.4-10.4); Platelet Count Result 196 k/mm3 (150-375); Red Blood Count 4.97 M/mm3 (4.2-5.4); Red Cell Distribution Width 14.5 % (11.5-14.5); White Blood Count 17.1 K/mm3 (4.5-10.0)
[2022-03-07 06:33] LABS: Anion Gap -2 mmol/L (8-16); Blood Urea Nitrogen 19 mg/dL (7-17); Calcium 8.3 mg/dL (8.4-10.2); Carbon Dioxide 36 mmol/L (22-30); Chloride 102 mmol/L (98-107); Estimated CRCL calculation 70 ml/min; Estimated Glomerular Filt Rate > 60; Glucose 91 mg/dL (65-110); Potassium 3.9 mmol/L (3.4-5.0); Sodium 136 mmol/L (137-145)
[2022-03-07] MEDS: guaiFENesin 600 MG/DEXTROMETHORPHAN 30 MG SR TAB 12 HR 1 TAB PO ×2 (08:39→21:41)
[2022-03-07] MEDS: predniSONE 10 MG TABLET 50 MG PO (08:39)
[2022-03-07] MEDS: NEBIVOLOL HCL 5 MG TABLET 10 MG PO (08:40)
[2022-03-07] MEDS: ENOXAPARIN 40 MG/0.4 ML SYRINGE SUB-Q (08:40)
[2022-03-07] MEDS: DOCUSATE SODIUM 100 MG CAPSULE PO (08:40)
--- NOTE | 2022-03-07 11:41 | P.PNIM_ITS ---
Progress Note: A&P Assessment and Plan (1) Acute respiratory failure with hypercapnia: Code(s): J96.02 - Acute respiratory failure with hypercapnia Status: Acute Assessment and Plan: On 03/02 pt developed increased work of breathing, significant wheezing, and hypercapnia on ABG secondary to COPD * Started on continuous BiPAP with improvement * 03/03 taken off continuous BiPAP. Can use BiPAP at night/when sleeping as needed. Have not used in over 48 hours. * CTA was negative for pulmonary embolism. Bilateral upper and lower extremity venous Dopplers negative for DVT * BNP appropriate limits for age. Echocardiogram revealed hyperdynamic LV systolic function with grade 1 diastolic dysfunction. Not felt to be contributing to acute respiratory failure. * Sputum culture with growth of normal oropharyngeal ying * No evidence of aspiration on CXR * Appreciate pulmonology consultation * Has been weaned to 1 L supplemental O2 per nasal cannula, previously required up to 4 L (2) COPD with exacerbation: Code(s): J44.1 - Chronic obstructive pulmonary disease with (acute) exacerbation Status: Acute Assessment and Plan: Patient presented with increased shortness of breath and wheezing consistent with COPD exacerbation * IV Solu-Medrol weaned to prednisone 50 mg daily * DuoNebs weaned to q6hr today by pulm * Completed 5 days of IV azithromycin * COVID-19 negative x2. Influenza negative. * Respiratory viral pathogen panel is pending. Pt reports recent sick contacts (grandchild had cold symptoms). * Will complete overnight oximetry on RA tonight to assess nocturnal oxygen needs (3) Hypertension: Code(s): I10 - Essential (primary) hypertension Status: Acute Assessment and Plan: Blood pressure reviewed and have been elevated above target. Last BP 165/66 * Continue nebivolol * Concern for beta 2 blockade causing bronchospasm, however patient has clinical improvement today, therefore will continue with nebivolol * Reports history of angioedema to lisinopril. Will avoid FILOMENA/ARB * Continue monitoring, will likely need follow up w/ pcp upon discharge (4) Ventral hernia: Code(s): K43.9 - Ventral hernia without obstruction or gangrene Status: Acute Assessment and Plan: on 03/02 Patient complained of left sided abdominal discomfort * CT of the abdomen/pelvis showed large wide-mouth supraumbilical ventral hernia containing multiple loops of nonobstructive large and small bowel * Patient is tolerating her diet. Abdomen is soft. No evidence of incarcerated or strangulated hernia * Discussed the case with General surgery. Will plan for outpatient follow-up * Continue daily monitoring/abdominal exams during admission Subjective Date/time seen: 03/07/22 11:41 Interval history: Rosalind Palumbo is a 61-year-old female with a history of COPD, hypertension, and seasonal allergies who is seen in follow-up for COPD exacerbation. Pt feeling a bit better overall but still not back to baseline. Still on 1L NC and still wheezing. Has some congestion now. Feeling frustrated because she wants to go home. No chest pain. Review of Systems Review of Systems: All systems reviewed & are unremarkable except as noted in HPI and below Exam Narrative: General: Obese, well-appearing 61-year-old female, sitting up in bed, comfortable, no acute respiratory distress Neuro: awake, alert and oriented x4, speech clear, no focal neuro deficits noted HEENMT: normocephalic, a
--- NOTE | 2022-03-07 11:41 | PM.IMPN ---
Progress Note: A&P Assessment and Plan (1) Acute respiratory failure with hypercapnia: Code(s): J96.02 - Acute respiratory failure with hypercapnia Status: Acute Assessment and Plan: On 03/02 pt developed increased work of breathing, significant wheezing, and hypercapnia on ABG secondary to COPD Started on continuous BiPAP with improvement 03/03 taken off continuous BiPAP. Can use BiPAP at night/when sleeping as needed. Have not used in over 48 hours. CTA was negative for pulmonary embolism. Bilateral upper and lower extremity venous Dopplers negative for DVT BNP appropriate limits for age. Echocardiogram revealed hyperdynamic LV systolic function with grade 1 diastolic dysfunction. Not felt to be contributing to acute respiratory failure. Sputum culture with growth of normal oropharyngeal ying No evidence of aspiration on CXR Appreciate pulmonology consultation Has been weaned to 1 L supplemental O2 per nasal cannula, previously required up to 4 L (2) COPD with exacerbation: Code(s): J44.1 - Chronic obstructive pulmonary disease with (acute) exacerbation Status: Acute Assessment and Plan: Patient presented with increased shortness of breath and wheezing consistent with COPD exacerbation IV Solu-Medrol weaned to prednisone 50 mg daily DuoNebs weaned to q6hr today by pulm Completed 5 days of IV azithromycin COVID-19 negative x2. Influenza negative. Respiratory viral pathogen panel is pending. Pt reports recent sick contacts (grandchild had cold symptoms). Will complete overnight oximetry on RA tonight to assess nocturnal oxygen needs (3) Hypertension: Code(s): I10 - Essential (primary) hypertension Status: Acute Assessment and Plan: Blood pressure reviewed and have been elevated above target. Last BP 165/66 Continue nebivolol Concern for beta 2 blockade causing bronchospasm, however patient has clinical improvement today, therefore will continue with nebivolol Reports history of angioedema to lisinopril. Will avoid FILOMENA/ARB Continue monitoring, will likely need follow up w/ pcp upon discharge (4) Ventral hernia: Code(s): K43.9 - Ventral hernia without obstruction or gangrene Status: Acute Assessment and Plan: on 03/02 Patient complained of left sided abdominal discomfort CT of the abdomen/pelvis showed large wide-mouth supraumbilical ventral hernia containing multiple loops of nonobstructive large and small bowel Patient is tolerating her diet. Abdomen is soft. No evidence of incarcerated or strangulated hernia Discussed the case with General surgery. Will plan for outpatient follow-up Continue daily monitoring/abdominal exams during admission Subjective Date/time seen: 03/07/22 11:41 Interval history: Rosalind Palumbo is a 61-year-old female with a history of COPD, hypertension, and seasonal allergies who is seen in follow-up for COPD exacerbation. Pt feeling a bit better overall but still not back to baseline. Still on 1L NC and still wheezing. Has some congestion now. Feeling frustrated because she wants to go home. No chest pain. Review of Systems Review of Systems: All systems reviewed & are unremarkable except as noted in HPI and below Exam Narrative: General: Obese, well-appearing 61-year-old female, sitting up in bed, comfortable, no acute respiratory distress Neuro: awake, alert and oriented x4, speech clear, no focal neuro deficits noted HEENMT: normocephalic, atraumatic, EOMI, sclerae anicteric Respiratory: Post-expiratory wheezes in all lung molina, nonlabored breathing, able to speak in complete sentences Cardio: regular rate, regular rhythm with S1-S2 Abdomen: Protuberant, nondistended, normoactive bowel sounds, soft, nontender to palpation Extremities: no edema, erythema, or tenderness to palpation, DP pulses 2+ bilaterally Skin: no cyanosis, no rashes or lesions, warm and dry Psych: approp
[2022-03-07] MEDS: NICOTINE (*PBKC) 7 MG PATCH 1 PATCH TRANSDERM (15:18)
[2022-03-07] MEDS: SIMVASTATIN 20 MG TABLET PO (21:41)
[2022-03-08] VITALS (10 sets, daily range): BP systolic 155; BP diastolic 74; PULSE 54–98; RESP 18; TEMP 36.6; O2SAT 92–95
[2022-03-08] MEDS: SALINE 0.65% NAS SOLN 44 ML BTL 1 SPRAY NASAL (05:15)
[2022-03-08 07:07] LABS: Basophils Absolute Auto 0.1 K/mm3 (0.0-0.1); Basophils Percent Auto 0.3 % (0.2-1.2); Eosinophils Absolute Auto 0.1 K/mm3 (0-0.3); Eosinophils Percent Auto 0.4 % (0-4.4); Hematocrit 44.2 % (37.0-47.0); Hemoglobin 13.8 g/dL (12.0-15.0); Immature Granulocyte Percent A 4.2 % (0-0.5); Lymphocytes Absolute Auto 4.23 K/mm3 (0.9-3.2); Lymphocytes Percent Auto 25.1 % (18.3-44.2); Mean Corpuscular HGB Conc 31.2 g/dl (32-36); Mean Corpuscular Hemoglobin 28.1 pg (26-34); Mean Platelet Volume 10.7 fl (7.4-10.4); Monocytes Absolute Auto 0.8 K/mm3 (0.1-0.6); Monocytes Percent Auto 4.5 % (2.6-8.5); Neutrophils Absolute Auto 11.1 K/mm3 (1.3-6.7); Neutrophils Percent Auto 65.5 % (45.5-73.1); Platelet Count Result 186 k/mm3 (150-375); Red Blood Count 4.91 M/mm3 (4.2-5.4); Red Cell Distribution Width 14.9 % (11.5-14.5); White Blood Count 16.9 K/mm3 (4.5-10.0)
[2022-03-08 07:20] LABS: Alanine Aminotransferase 29 U/L (6-35); Albumin Level 3.1 g/dL (3.5-5.1); Alkaline Phosphatase 57 U/L (38-126); Anion Gap 6 mmol/L (8-16); Aspartate Amino Transferase 19 U/L (14-36); Bilirubin,Total 0.2 mg/dL (0.2-1.3); Blood Urea Nitrogen 19 mg/dL (7-17); Calcium 8.2 mg/dL (8.4-10.2); Carbon Dioxide 30 mmol/L (22-30); Chloride 102 mmol/L (98-107); Estimated CRCL calculation 62 ml/min; Estimated Glomerular Filt Rate > 60; Glucose 148 mg/dL (65-110); Potassium 3.5 mmol/L (3.4-5.0); Sodium 138 mmol/L (137-145)
[2022-03-08] MEDS: IPRATROPIUM BR 0.02% INH SOLN 0.5 MG/2.5 ML VIAL INHALATION (07:40)
[2022-03-08] MEDS: ALBUTEROL SULFATE NEB 2.5 MG/3 ML INH INHALATION (07:40)
[2022-03-08] MEDS: ENOXAPARIN 40 MG/0.4 ML SYRINGE SUB-Q (08:42)
[2022-03-08] MEDS: predniSONE 10 MG TABLET 50 MG PO (08:43)
[2022-03-08] MEDS: guaiFENesin 600 MG/DEXTROMETHORPHAN 30 MG SR TAB 12 HR 1 TAB PO (08:43)
[2022-03-08] MEDS: NEBIVOLOL HCL 5 MG TABLET 10 MG PO (08:43)
[2022-03-08] MEDS: NICOTINE (*PBKC) 7 MG PATCH 1 PATCH TRANSDERM (08:44)
--- NOTE | 2022-03-08 09:24 | PC.NURSE ---
pft lab called and informed about pt home 02 eval for discharge home.
--- NOTE | 2022-03-08 10:28 | HOMEO2EVAL ---
Evaluation was performed at [facility] Home Oxygen Evaluation RC: Home Oxygen (O2) Evaluation Start: 03/08/22 08:13 Freq: ONCE Status: Active Protocol: RPE Activity Type Activity Date Activity User E-sign Co-sign Detail Recorded Client Recorded Date Recorded By Document 03/08/22 09:30 LUCY [id number] 03/08/22 10:28 LUCY Document 03/08/22 09:35 LUCY [id number] 03/08/22 10:28 LUCY Document 03/08/22 09:45 LUCY [id number] 03/08/22 10:28 LUCY 03/08/22 03/08/22 03/08/22 09:30 09:35 09:45 Home O2 Evaluation Test Phase Resting Resting Resting Oxygen Delivery Room Air Room Air Room Air Pulse Oximetry (90-100 %) 94 92 94 Pulse Rate (60-100 beats/min) 82 98 89 Home Oxygen Evaluation Comments No home O2 needed. Treatment Charges O2 Evaluation - Inpatient
--- NOTE | 2022-03-08 10:28 | PCRCNOTE ---
No home O2 needed at thistime.
--- NOTE | 2022-03-08 12:27 | PC.NURSE ---
pt needs 1 L oxgen at [facility] according to apnealink study, discharge pending home o2 delivery.
--- NOTE | 2022-03-08 12:39 | PC.NURSE ---
pft lab called for home nebulizer and 1l o2 at night
--- NOTE | 2022-03-08 12:43 | P.DS_ITS ---
DS: Admitting Diagnosis Discharge Date 03/08/22 Admitting Diagnosis copd exacerbation DS: Discharge Diagnosis Discharge Diagnosis (1) Acute respiratory failure with hypercapnia: Code(s): J96.02 - Acute respiratory failure with hypercapnia Status: Acute Assessment and Plan: On 03/02 pt developed increased work of breathing, significant wheezing, and hypercapnia on ABG secondary to COPD * Started on continuous BiPAP with improvement * 03/03 taken off continuous BiPAP. Can use BiPAP at night/when sleeping as needed. Have not used in over 72 hours. * CTA was negative for pulmonary embolism. Bilateral upper and lower extremity venous Dopplers negative for DVT * BNP appropriate limits for age. Echocardiogram revealed hyperdynamic LV systolic function with grade 1 diastolic dysfunction. Not felt to be contributing to acute respiratory failure. * Sputum culture with growth of normal oropharyngeal ying * No evidence of aspiration on CXR * pulmonology consulted * Has been weaned to RA, previously required up to 4 L * Home oxygen evaluation with no oxygen requirements (2) COPD with exacerbation: Code(s): J44.1 - Chronic obstructive pulmonary disease with (acute) exacerbation Status: Acute Assessment and Plan: Patient presented with increased shortness of breath and wheezing consistent with COPD exacerbation * IV Solu-Medrol weaned to prednisone 50 mg daily * DuoNebs weaned to q6hr today by pulm * Completed 5 days of IV azithromycin * COVID-19 negative x2. Influenza negative. * Respiratory viral pathogen panel is pending. Pt reports recent sick contacts (grandchild had cold symptoms). * Overnight pulse oximetry on RA completed, per pulm patient requires 1L NC overnight, will send her home with this * Discharge medications per pulm recommendations (3) Hypertension: Code(s): I10 - Essential (primary) hypertension Status: Acute Assessment and Plan: Blood pressure reviewed and have been elevated above target. Last BP 155/74 * Continue nebivolol * Concern for beta 2 blockade causing bronchospasm, however patient has clinical improvement today, therefore will continue with nebivolol * Reports history of angioedema to lisinopril. Will avoid FILOMENA/ARB * Continue monitoring, will need follow up w/ pcp upon discharge for blood pressure management group home (4) Ventral hernia: Code(s): K43.9 - Ventral hernia without obstruction or gangrene Status: Acute Assessment and Plan: on 03/02 Patient complained of left sided abdominal discomfort * CT of the abdomen/pelvis showed large wide-mouth supraumbilical ventral hernia containing multiple loops of nonobstructive large and small bowel * Patient is tolerating her diet. Abdomen is soft. No evidence of incarcerated or strangulated hernia * Discussed the case with General surgery. Will plan for outpatient follow-up DS: Summary Hospital Course Reason for hospitalization: Rosalind Palumbo is a 61-year-old female with a history of COPD, hypertension, and seasonal allergies who is seen in follow-up for COPD exacerbation. Please see HPI for further details. Hospital Course: Please see above for details of hospital course. Time spent discussing smoking cessation with patient: more than 10 minutes Status at Discharge Cognitive/behavioral status at discharge: stable Functional status at discharge: independent ambulation Overall status at discharge: patient is progressing back to baseline Wily
--- NOTE | 2022-03-08 12:43 | PM.DS ---
DS: Admitting Diagnosis Discharge Date 03/08/22 Admitting Diagnosis copd exacerbation DS: Discharge Diagnosis Discharge Diagnosis (1) Acute respiratory failure with hypercapnia: Code(s): J96.02 - Acute respiratory failure with hypercapnia Status: Acute Assessment and Plan: On 03/02 pt developed increased work of breathing, significant wheezing, and hypercapnia on ABG secondary to COPD Started on continuous BiPAP with improvement 03/03 taken off continuous BiPAP. Can use BiPAP at night/when sleeping as needed. Have not used in over 72 hours. CTA was negative for pulmonary embolism. Bilateral upper and lower extremity venous Dopplers negative for DVT BNP appropriate limits for age. Echocardiogram revealed hyperdynamic LV systolic function with grade 1 diastolic dysfunction. Not felt to be contributing to acute respiratory failure. Sputum culture with growth of normal oropharyngeal ying No evidence of aspiration on CXR pulmonology consulted Has been weaned to RA, previously required up to 4 L Home oxygen evaluation with no oxygen requirements (2) COPD with exacerbation: Code(s): J44.1 - Chronic obstructive pulmonary disease with (acute) exacerbation Status: Acute Assessment and Plan: Patient presented with increased shortness of breath and wheezing consistent with COPD exacerbation IV Solu-Medrol weaned to prednisone 50 mg daily DuoNebs weaned to q6hr today by pulm Completed 5 days of IV azithromycin COVID-19 negative x2. Influenza negative. Respiratory viral pathogen panel is pending. Pt reports recent sick contacts (grandchild had cold symptoms). Overnight pulse oximetry on RA completed, per pulm patient requires 1L NC overnight, will send her home with this Discharge medications per pulm recommendations (3) Hypertension: Code(s): I10 - Essential (primary) hypertension Status: Acute Assessment and Plan: Blood pressure reviewed and have been elevated above target. Last BP 155/74 Continue nebivolol Concern for beta 2 blockade causing bronchospasm, however patient has clinical improvement today, therefore will continue with nebivolol Reports history of angioedema to lisinopril. Will avoid FILOMENA/ARB Continue monitoring, will need follow up w/ pcp upon discharge for blood pressure management psych therapist (4) Ventral hernia: Code(s): K43.9 - Ventral hernia without obstruction or gangrene Status: Acute Assessment and Plan: on 03/02 Patient complained of left sided abdominal discomfort CT of the abdomen/pelvis showed large wide-mouth supraumbilical ventral hernia containing multiple loops of nonobstructive large and small bowel Patient is tolerating her diet. Abdomen is soft. No evidence of incarcerated or strangulated hernia Discussed the case with General surgery. Will plan for outpatient follow-up DS: Summary Hospital Course Reason for hospitalization: Rosalind Palumbo is a 61-year-old female with a history of COPD, hypertension, and seasonal allergies who is seen in follow-up for COPD exacerbation. Please see HPI for further details. Hospital Course: Please see above for details of hospital course. Time spent discussing smoking cessation with patient: more than 10 minutes Status at Discharge Cognitive/behavioral status at discharge: stable Functional status at discharge: independent ambulation Overall status at discharge: patient is progressing back to baseline Time Spent with Patient Time attestation: Total time spent providing and/or coordinating discharge services: 60 Time spent: Greater than 30 minutes Exam Narrative: General: Obese, well-appearing 61-year-old female, sitting up in bed, comfortable, no acute respiratory distress Neuro: awake, alert and oriented x4, speech clear, no focal neuro deficits noted HEENMT: normocephalic, atraumatic, EOMI, sclerae anicteric Respiratory: scattered
--- NOTE | 2022-03-08 13:26 | PCCCNOTE ---
On 03/08/22, the student, [Lee Ann Naqvi], provided care and completed [facility] documentation on this patient. I have reviewed the student's documentation and agree with the findings.
== END 2022-03-08 13:45 | disposition home or self-care (01) | DRG 190 ==
LOC: ANHED 02-28 04:31 → ANH2MED 02-28 05:14 → ANHIMU 03-02 11:01 → ANH3MEDSUR 03-06 16:46
PROVIDERS: Internal Medicine; Internal Medicine Pulmonary Disease; Physician Assistant; Admitting Provider Internal Medicine; Emergency Provider Emergency Medicine; Visit Provider Internal Medicine
DX: J43.9 Emphysema, unspecified (principal); J96.02 Acute respiratory failure with hypercapnia; M35.1 Other overlap syndromes; I10 Essential (primary) hypertension; Z80.3 Family history of malignant neoplasm of breast; Z80.1 Family history of malignant neoplasm of trachea, bronchus and lung; Z82.0 Family history of epilepsy and other diseases of the nervous system; Z82.49 Family history of ischemic heart disease and other diseases of the circulatory system; F17.200 Nicotine dependence, unspecified, uncomplicated; K43.9 Ventral hernia without obstruction or gangrene; Z20.822 Contact with and (suspected) exposure to COVID-19; Z79.899 Other long term (current) drug therapy
CPT/HCPCS: 36415; 36569; 36600; 71045; 71046; 71275; 74177; 80048; 80053; 82375; 82805; 83050; 83880; 85025; 85027; 85380; 87070; 87205; 87486; 87502; 87581; 87633; 93005; 93306; 93970; 94002; 94618; 94640; 94660; 94667; 94762; 96372; 96375; 96376; 97161; 99285; A9270; C1751; C9803; G0378; J0456; J1650; J2060; J2920; J2930; J7512; Q9967; U0003; U0005

== ENCOUNTER 2022-03-24 15:17 | Emergency (ER) | payer MEDICARE, SELFPAY ==
[2022-03-24 15:20] VITALS: BP 146/60; PULSE 66; RESP 20; TEMP 35.9; O2SAT 99
--- NOTE | 2022-03-24 15:24 | ED.EAR ---
HPI - Ear Problem General Chief complaint: Ear Stated complaint: ear pain Time Seen by Provider: 03/24/22 15:35 Source: patient, RN notes reviewed and old records reviewed Mode of arrival: ambulatory Limitations: no limitations History of Present Illness HPI Narrative: 61-year-old female presents to the ER [facility] with complaints of left ear pain for approximately 4 days. Patient states she just keeps hearing popping in her ear And is having increased pain. Denies fevers. Denies any other symptoms with the left ear pain MD Complaint: ear pain Location: left ear Duration: constant Severity: mild Related Data Home Medications Medication Instructions Recorded Confirmed albuterol sulfate 90 mcg/actuation 2 inh inhalation Q6H PRN Shortness 03/13/21 02/28/22 aerosol inhaler Of Breath nebivolol 10 mg tablet (Bystolic) 10 mg PO DAILY 03/13/21 02/28/22 simvastatin 20 mg tablet 20 mg PO DAILY 03/13/21 02/28/22 Allergies Allergy/AdvReac Type Severity Reaction Status Date / Time No Known Allergies Allergy Verified 02/27/22 21:56 Review of Systems Review of Systems: All systems reviewed & are unremarkable except as noted in HPI and below Constitutional: Constitutional: Reports no additional constitutional complaints, Denies chills and Denies fever(s) Eyes: Eyes: Reports no additional eye complaints ENT: Reports as per HPI (Left ear) Cardiovascular: Cardiovascular: Reports no additional cardiovascular complaints Respiratory: Respiratory: Reports no additional respiratory complaints Gastrointestinal: Gastrointestinal: Reports no additional gastrointestinal complaints Musculoskeletal: Musculoskeletal: Reports no additional musculoskeletal complaints Integumentary/Breasts: Skin/Breast: Reports system reviewed and no additional complaints, except as docu Neurologic: Reports system reviewed and no additional complaints, except as documented Psychiatric: Psychiatric: Reports no additional psychiatric complaints Allergic/Immunologic: Allergic/Immunologic: Reports no additional allergic/immunologic complaints [facility] Past Medical History Medical History COPD (chronic obstructive pulmonary disease) Hypertension Seasonal allergies Surgical History Surgical History History of bowel resection History of delivery History of hernia surgery History of hysterectomy History of tubal ligation Family History Family History Sibling Asthma Diabetes mellitus Hypertension Mother Cerebrovascular accident Hypertension Breast cancer Father Chronic obstructive pulmonary disease Lung cancer Social History Social History Social History: Ms. Palumbo lives at home with her of 47 years. She is independent in her daily activities living. She is on disability. Her primary care provider is Dr. Andrade in [place]. She designates her daughter, Virginie, as her surrogate decision maker. She would like to be a full code. Years smoked: 25 Smoking status: Current every day smoker Alcohol intake: never Substance use type: marijuana Other substance usage details: Marijuana use 2x/month Spiritual care concerns: No Comments At the time of my signature, I reviewed and agree with the nursing past medical, surgical, social, and family history. There is no relevant family history pertinent to the patient complaint. Exam Const: General: healthy appearing, no acute distress and alert Nutritional Appearance: well nourished and obese Orientation/consciousness: patient oriented x3 Limitations: no limitations HENMT: Head: normal to inspection Ears: external ears normal, EAC's normal and TM abnormal bulging on the left, erythematous on the left and with loss of landmarks on the left General no
== END 2022-03-24 15:44 | disposition home or self-care (01) ==
PROVIDERS: Emergency Provider Nurse Practitioner
DX: H66.92 Otitis media, unspecified, left ear (principal); F17.200 Nicotine dependence, unspecified, uncomplicated; J44.9 Chronic obstructive pulmonary disease, unspecified; I10 Essential (primary) hypertension
CPT/HCPCS: 99213; G0463

== ENCOUNTER 2022-06-05 14:10 | Outpatient (CLI) | payer MEDICARE, SELFPAY ==
--- NOTE | 2022-06-05 15:23 | PCRCNOTE ---
PT CAME IN FOR PFT, UNABLE TO PERFORM. SEE HER PFT REPORT IN [facility]. CALLED OFFICE, LEFT VOICE MAIL, DIRECTED TO CARYL
== END 2022-06-05 14:11 | disposition home or self-care (01) ==
PROVIDERS: PCP Internal Medicine; Visit Provider Internal Medicine Pulmonary Disease
DX: R06.00 Dyspnea, unspecified (principal)
CPT/HCPCS: 99199

== ENCOUNTER 2022-07-05 15:02 | Emergency (ER) | payer MEDICARE, SELFPAY ==
[2022-07-05 15:11] VITALS: BP 143/62; PULSE 54; RESP 16; TEMP 36.4; O2SAT 98
--- NOTE | 2022-07-05 15:38 | ED.URI ---
HPI - URI/Sore Throat General Chief Complaint: Upper Respiratory Infection Stated Complaint: sob Time Seen by Provider: 07/05/22 15:41 Source: patient, RN notes reviewed and old records reviewed Mode of arrival: ambulatory Limitations: no limitations History of Present Illness HPI Narrative: 62-year-old female presents to the [facility] with complaints of her COPD, chronic bronchitis acting up. Patient states that she does not want to go to the point where she has to be admitted like she was a couple of months ago. Patient has COPD, chronic bronchitis and still a smoker. Denies any chest pain. Reports some shortness of breath a little more increased, has not been able to smoke a cigarette due to it. She is talking in full sentences. Denies fevers. Related Data Home Medications Medication Instructions Recorded Confirmed albuterol sulfate 90 mcg/actuation 2 inh inhalation Q6H PRN Shortness 03/13/21 07/05/22 aerosol inhaler Of Breath nebivolol 10 mg tablet (Bystolic) 10 mg PO DAILY 03/13/21 07/05/22 simvastatin 20 mg tablet 20 mg PO DAILY 03/13/21 07/05/22 spironolactone 25 mg tablet 25 mg DAILY 07/05/22 07/05/22 Allergies Allergy/AdvReac Type Severity Reaction Status Date / Time No Known Allergies Allergy Verified 07/05/22 15:28 Review of Systems Review of Systems: All systems reviewed & are unremarkable except as noted in HPI and below Constitutional: Constitutional: Reports no additional constitutional complaints, Denies chills and Denies fever(s) Eyes: Eyes: Reports no additional eye complaints ENT: Reports system reviewed and no additional complaints, except as documented Cardiovascular: Cardiovascular: Reports no additional cardiovascular complaints Respiratory: Respiratory: Reports as per HPI, Reports cough and Reports dyspnea Gastrointestinal: Gastrointestinal: Reports no additional gastrointestinal complaints Musculoskeletal: Musculoskeletal: Reports no additional musculoskeletal complaints Integumentary/Breasts: Skin/Breast: Reports system reviewed and no additional complaints, except as docu Neurologic: Reports system reviewed and no additional complaints, except as documented Psychiatric: Psychiatric: Reports no additional psychiatric complaints Allergic/Immunologic: Allergic/Immunologic: Reports no additional allergic/immunologic complaints PMFSH Past Medical History Medical History COPD (chronic obstructive pulmonary disease) Hypertension Seasonal allergies Surgical History Surgical History History of bowel resection History of delivery History of hernia surgery History of hysterectomy History of tubal ligation Family History Family History Sibling Asthma Diabetes mellitus Hypertension Mother Cerebrovascular accident Hypertension Breast cancer Father Chronic obstructive pulmonary disease Lung cancer Social History Social History Social History: Ms. Palumbo lives at home with her of 47 years. She is independent in her daily activities living. She is on disability. Her primary care provider is Dr. Andrade in [place]. She designates her daughter, Virginie, as her surrogate decision maker. She would like to be a full code. Years smoked: 25 Smoking status: Current every day smoker Alcohol intake: never Substance use type: marijuana Other substance usage details: Marijuana use 2x/month Spiritual care concerns: No Comments At the time of my signature, I reviewed and agree with the nursing past medical, surgical, social, and family history. There is no relevant family history pertinent to the patient complaint. Exam Const: General: healthy appearing, no acute distress, alert and well nourished Nutritional Appearance: well syed
== END 2022-07-05 16:04 | disposition home or self-care (01) ==
PROVIDERS: Emergency Provider Nurse Practitioner
DX: J44.9 Chronic obstructive pulmonary disease, unspecified (principal); F17.290 Nicotine dependence, other tobacco product, uncomplicated; F12.90 Cannabis use, unspecified, uncomplicated; I10 Essential (primary) hypertension
CPT/HCPCS: 99213; G0463

== ENCOUNTER 2022-10-16 15:15 | Emergency (ER) | payer MEDICARE, SELFPAY ==
--- NOTE | ~2022-10-16 | XR_ITS ---
EXAMINATION: XR finger 1st RT min 2V INDICATION: Right first finger pain TECHNIQUE: Three views of the right first finger are obtained. COMPARISON: None available FINDINGS: Bone alignment is normal. There is no fracture. There is mild osteoarthritis of the interph alangeal joint. IMPRESSION: 1. No acute osseous abnormality. Reviewed, dictated and finalized at location L. CONTROL REPRESENTATIVE
[2022-10-16 15:24] VITALS: BP 165/83; PULSE 60; RESP 20; TEMP 36.4; O2SAT 98
--- NOTE | 2022-10-16 15:36 | ED.EXTPRO ---
HPI - Extremity Problem General Chief complaint: Extremity Problem,Nontraumatic Stated complaint: right thumb pain Time Seen by Provider: 10/16/22 15:37 Source: patient Mode of arrival: ambulatory Limitations: no limitations History of Present Illness HPI Narrative: 62 old female presenting for complaint of right thumb pain and swelling for about 1 week. She endorses pain is worse with flexion and the distal joint 'flicks' up. Denies injury. She is right-hand dominant. Denies numbness tingling, weakness of the extremity. She took Tylenol for pain. Related Data Home Medications Medication Instructions Recorded Confirmed nebivolol 10 mg tablet (Bystolic) 10 mg PO DAILY 03/13/21 10/16/22 spironolactone 25 mg tablet 25 mg DAILY 07/05/22 10/16/22 Allergies Allergy/AdvReac Type Severity Reaction Status Date / Time No Known Allergies Allergy Verified 10/16/22 15:37 Review of Systems Review of Systems: CONSTITUTIONAL: Denies body aches, fever, chills CARDIOVASCULAR: Denies chest pain, palpitations, or edema. RESPIRATORY: Denies cough or dyspnea. SKIN: Denies rash, itching, or wounds. MUSCULOSKELETAL: Per HPI NEUROLOGIC: Denies headache, numbness, tingling, or weakness. All systems reviewed & are unremarkable except as noted in HPI and below PMFSH Past Medical History Medical History COPD (chronic obstructive pulmonary disease) Hypertension Seasonal allergies Surgical History Surgical History History of bowel resection History of delivery History of hernia surgery History of hysterectomy History of tubal ligation Family History Family History Sibling Asthma Diabetes mellitus Hypertension Mother Cerebrovascular accident Hypertension Breast cancer Father Chronic obstructive pulmonary disease Lung cancer Social History Social History Social History: Ms. Palumbo lives at home with her of 47 years. She is independent in her daily activities living. She is on disability. Her primary care provider is Dr. Andrade in [place]. She designates her daughter, Virginie, as her surrogate decision maker. She would like to be a full code. Years smoked: 25 Smoking status: Current every day smoker Alcohol intake: never Substance use type: marijuana Other substance usage details: Marijuana use 2x/month Lack of Transportation: No Lack of Food: Never True Current Housing: I Have Housing Concerned About Future Housing: No Difficulty Paying Gas/Electric Bills: No Difficulty Paying for Meds: No Currently Unemployed: No Education: Trade/Vocational Certificate Difficulty w/ Childcare or Family Care: No Living arrangements: with family Spiritual care concerns: No Comments At time of signature, I have reviewed and agree with nursing past medical, surgical, social and family history unless otherwise noted. Please see nursing chart for further information. There is no relevant family history pertinent to the presenting complaint Exam Narrative: GENERAL: Well-appearing CHEST: Speaks in full sentences. No respiratory distress. HEART: Regular rate and rhythm. Normal and equal peripheral pulses. EXTREMITIES: Right thumb with mild swelling and erythema to MCP, tender with palpation; pain worse with flexion at DIP, involuntarily the joint straightens c/w trigger finger; hand has normal strength and sensation. No open wounds or obvious deformity; alignment normal, pulse palpable and equal bilaterally, skin warm, dry, pink. Capillary refill less than 3 seconds. SKIN: Warm, dry, no rash. NEURO: Alert and oriented x3. PSYCH: Normal mood and affect Course Course Emergency Course: Patient is aware of diagnosis, understands and agrees to treatme
== END 2022-10-16 16:22 | disposition home or self-care (01) ==
PROVIDERS: Emergency Provider Nurse Practitioner Family; PCP Emergency Medicine
DX: M79.644 Pain in right finger(s) (principal); J44.9 Chronic obstructive pulmonary disease, unspecified; I10 Essential (primary) hypertension; F17.290 Nicotine dependence, other tobacco product, uncomplicated; F12.90 Cannabis use, unspecified, uncomplicated
CPT/HCPCS: 73140; 99213; G0463

== ENCOUNTER 2022-10-17 22:58 | Emergency (ER) | payer MEDICARE, SELFPAY ==
[2022-10-17 23:02] VITALS: BP 208/76; PULSE 72; RESP 18; TEMP 36.9; O2SAT 98
--- NOTE | 2022-10-17 23:04 | ECG_ITS ---
Measurements Intervals [place] Rate: 70 P: 61 RI: 157 QRS: 44 QRSD: 89 T: 21 QT: 388 QTc: 419 Interpretive Statements SINUS RHYTHM WITHIN NORMAL LIMITS COMPARED TO ECG 03/05/2022 HEART RATE INCREASED Electronically Signed On 10-19-2022 13:01:10 CHROME PLATER by Neil Salvador M.D.
--- NOTE | 2022-10-17 23:54 | ED.GENADULT ---
HPI - General Adult General Chief complaint: Shortness of Breath/Dyspnea Stated complaint: Hypertension Time Seen by Provider: 10/17/22 23:42 History of Present Illness HPI narrative: This is a 62F w/history of hypertension and hyperlipidemia who presents to the emergency department with concern for high blood pressure and feelings of anxiety. She states approximately 5 hours prior to arrival this evening she witnessed her sister's unexpected . About 1 hour prior to arrival she noticed her blood pressure alice to the 200s systolic. She took her home medications as prescribed. She states she feels anxious, but denies chest pain, weakness/numbness or loss of consciousness. She also complains of left thumb tenderness. She was seen for this previously and told she had arthritic changes without fracture. Related Data Home Medications Medication Instructions Recorded Confirmed nebivolol 10 mg tablet (Bystolic) 10 mg PO DAILY 03/13/21 10/16/22 spironolactone 25 mg tablet 25 mg DAILY 07/05/22 10/16/22 Allergies Allergy/AdvReac Type Severity Reaction Status Date / Time No Known Allergies Allergy Verified 10/16/22 15:37 Review of Systems Review of Systems: CONSTITUTIONAL: Denies fever, chills, or sweats. EYES: Denies visual changes, redness, or discharge. ENT: Denies rhinorrhea, congestion, sore throat, or otalgia. CARDIOVASCULAR: Denies chest pain, palpitations, or edema. RESPIRATORY: Denies cough or dyspnea. GASTROINTESTINAL: Denies abdominal pain, nausea, vomiting, or diarrhea. GENITOURINARY: Dysuria denies hematuria. SKIN: Denies rash or itching. MUSCULOSKELETAL: Mild left thumb pain Denies back pain or myalgia. NEUROLOGIC: Denies headache, numbness, dizziness, or weakness. PSYCHIATRIC: anxiety Denies depression. [facility] Past Medical History Medical History COPD (chronic obstructive pulmonary disease) Hypertension Seasonal allergies Surgical History Surgical History History of bowel resection History of delivery History of hernia surgery History of hysterectomy History of tubal ligation Family History Family History Sibling Asthma Diabetes mellitus Hypertension Mother Cerebrovascular accident Hypertension Breast cancer Father Chronic obstructive pulmonary disease Lung cancer Social History Social History Social History: Ms. Palumbo lives at home with her of 47 years. She is independent in her daily activities living. She is on disability. Her primary care provider is Dr. Andrade in [place]. She designates her daughter, Virginie, as her surrogate decision maker. She would like to be a full code. Years smoked: 25 Smoking status: Current every day smoker Alcohol intake: never Substance use type: marijuana Other substance usage details: Marijuana use 2x/month Lack of Transportation: No Lack of Food: Never True Current Housing: I Have Housing Concerned About Future Housing: No Difficulty Paying Gas/Electric Bills: No Difficulty Paying for Meds: No Currently Unemployed: No Education: Trade/Vocational Certificate Difficulty w/ Childcare or Family Care: No Living arrangements: with family Spiritual care concerns: No Exam Narrative: GENERAL: Well-developed, well-nourished, and in no acute distress. HEAD: Normocephalic, atraumatic. EYES: PERRLA and EOMI. ENT: Nares clear, no rhinorrhea or epistaxis. Mucous membranes moist. Oropharynx without tonsillar hypertrophy exudate or other lesions. CHEST: Clear to auscultation. No respiratory distress. No wheezes rales or rhonchi HEART: Regular rate and rhythm. No murmur heard. Normal peripheral pulses. ABDOMEN: Soft, nontender to palpation, nondistended, normal active bowel sounds. No CVA te
[2022-10-18] MEDS: amLODIPine BESYLATE 5 MG TABLET PO (00:34)
[2022-10-18 00:36] VITALS: BP 164/56; PULSE 61; RESP 16; O2SAT 100
[2022-10-18 01:00] VITALS: BP 164/56; PULSE 65; RESP 14; O2SAT 100
[2022-10-18 01:20] VITALS: BP 153/79; PULSE 60; RESP 16; O2SAT 100
== END 2022-10-18 01:25 | disposition home or self-care (01) ==
PROVIDERS: Emergency Provider Preventive Medicine Aerospace Medicine; PCP Emergency Medicine
DX: I10 Essential (primary) hypertension (principal); M79.642 Pain in left hand; F43.20 Adjustment disorder, unspecified; F17.210 Nicotine dependence, cigarettes, uncomplicated; J44.9 Chronic obstructive pulmonary disease, unspecified
CPT/HCPCS: 93005; 99283; A9270

== ENCOUNTER 2022-10-22 01:02 | Emergency (ER) | payer MEDICARE, SELFPAY ==
[2022-10-22] VITALS (15 sets, daily range): BP systolic 145–156; BP diastolic 59–70; PULSE 55–63; RESP 14–29; TEMP 37.1; O2SAT 96–100
--- NOTE | ~2022-10-22 | XR_ITS ---
Portable chest x-ray Comparison: 03/05/2022 Clinical History: Shortness of breath Findings: Lungs are clear, without focal consolidation or pleural effusion. Possible COPD. Cardiomed iastinal silhouette is stable. Bones and soft tissues are unremarkable. Impression: Clear lungs. Possible COPD. Reviewed, dictated and finalized at location . UCT SUPPORT REP Impression: Clear lungs. Possible COPD.
--- NOTE | 2022-10-22 01:09 | ECG_ITS ---
Measurements Intervals [place] Rate: 57 P: 59 VT: 177 QRS: 58 QRSD: 94 T: 12 QT: 418 QTc: 410 Interpretive Statements SINUS BRADYCARDIA OTHERWISE WITHIN NORMAL LIMITS COMPARED TO ECG 10/17/2022 23:11:00 SINUS BRADYCARDIA NOW PRESENT Electronically Signed On 10-22-2022 12:07:30 ACCOUNT RETENTION REPRESENTATIVE by Neil Salvador M.D.
--- NOTE | 2022-10-22 01:27 | ED.GENADULT ---
HPI - General Adult General Chief complaint: Recheck/Abnormal Lab/Rx Stated complaint: DIZZY Time Seen by Provider: 10/22/22 01:13 History of Present Illness HPI narrative: Patient is a 62-year-old female that presents the emergency department with chief complaint of hypertension and anxiety. The patient reports that she has history of hypertension and has been undergoing a lot of stress over the last week she had the recent of her sister and also has been under an overwhelming amount of stress. The patient's noticed that her blood pressure was running elevated was seen in the emergency department a few days ago and was able to be discharged home. The patient reports tonight she noticed that her blood pressures have been running high and she started getting where she started breathing fast then had where her hands and feet went numb and her hands cramped up on her. The patient denies focal neurological deficit the patient reports that she had no chest pain with this Related Data Home Medications Medication Instructions Recorded Confirmed nebivolol 10 mg tablet (Bystolic) 10 mg PO DAILY 03/13/21 10/16/22 spironolactone 25 mg tablet 25 mg DAILY 07/05/22 10/16/22 Allergies Allergy/AdvReac Type Severity Reaction Status Date / Time No Known Allergies Allergy Verified 10/22/22 01:10 Review of Systems Review of Systems: A 10 system review of systems was completed on the patient and is negative except for what is stated in the HPI. Nursing and ancillary documentation was reviewed. [facility] Past Medical History Medical History COPD (chronic obstructive pulmonary disease) Hypertension Seasonal allergies Surgical History Surgical History History of bowel resection History of delivery History of hernia surgery History of hysterectomy History of tubal ligation Family History Family History Sibling Asthma Diabetes mellitus Hypertension Mother Cerebrovascular accident Hypertension Breast cancer Father Chronic obstructive pulmonary disease Lung cancer Social History Social History Social History: Ms. Palumbo lives at home with her of 47 years. She is independent in her daily activities living. She is on disability. Her primary care provider is Dr. Andrade in [place]. She designates her daughter, Virginie, as her surrogate decision maker. She would like to be a full code. Years smoked: 25 Smoking status: Current every day smoker Alcohol intake: never Substance use type: marijuana Other substance usage details: Marijuana use 2x/month Lack of Transportation: No Lack of Food: Never True Current Housing: I Have Housing Concerned About Future Housing: No Difficulty Paying Gas/Electric Bills: No Difficulty Paying for Meds: No Currently Unemployed: No Education: Trade/Vocational Certificate Difficulty w/ Childcare or Family Care: No Living arrangements: with family Spiritual care concerns: No Exam Narrative: GENERAL: Well-appearing, well-nourished, and in no acute distress. HEAD: Normocephalic, atraumatic. EYES: PERRLA and EOMI. ENT: Nares clear, no rhinorrhea or epistaxis. Mucous membranes moist. NECK: Supple. CHEST: Clear to auscultation. No respiratory distress. HEART: Regular rate and rhythm. No murmur heard. Normal peripheral pulses. ABDOMEN: Soft, nontender, nondistended, normal active bowel sounds. EXTREMITIES: Normal range of motion. No edema. SKIN: Warm, dry, no rash. NEURO: No focal deficits. Alert and oriented x3. PSYCH: Normal mood and affect. Course Course Emergency Course: EKG interpreted by me as sinus bradycardia rate of [address] elevation or ST depression Laboratory studies were obtained whic
[2022-10-22 01:44] LABS: Basophils Percent Auto 0.3 % (0.2-1.2); Eosinophils Absolute Auto 0.4 K/mm3 (0-0.3); Eosinophils Percent Auto 3.4 % (0-4.4); Hematocrit 43.5 % (37.0-47.0); Hemoglobin 14.6 g/dL (12.0-15.0); Immature Granulocyte Absolute 0.02 K/mm3 (0.00-0.031); Immature Granulocyte Percent A 0.2 % (0-0.5); Lymphocytes Absolute Auto 2.78 K/mm3 (0.9-3.2); Lymphocytes Percent Auto 27.3 % (18.3-44.2); Mean Corpuscular HGB Conc 33.6 g/dl (32-36); Mean Corpuscular Hemoglobin 29.1 pg (26-34); Mean Corpuscular Volume 86.8 fl (80-100); Mean Platelet Volume 9.9 fl (7.4-10.4); Monocytes Absolute Auto 0.7 K/mm3 (0.1-0.6); Monocytes Percent Auto 6.9 % (2.6-8.5); Neutrophils Absolute Auto 6.3 K/mm3 (1.3-6.7); Neutrophils Percent Auto 61.9 % (45.5-73.1); Platelet Count Result 196 k/mm3 (150-375); Red Blood Count 5.01 M/mm3 (4.2-5.4); Red Cell Distribution Width 14.6 % (11.5-14.5); White Blood Count 10.2 K/mm3 (4.5-10.0)
[2022-10-22 01:45] LABS: Appearance Urine Clear (Clear); Bilirubin Urine Negative (Negative); Blood Urine Trace-intact (Negative); Color Urine Yellow (Yellow); Glucose Urine UA Negative (Negative); Ketones Urine Negative (Negative); Leukocyte Esterase Ur Negative LEU/UL (Negative); Nitrate Urine Negative (Negative); Protein Urine Negative (Negative); Urobilinogen Urine 0.2 mg/dL (<2.0)
[2022-10-22 01:48] LABS: Bacteria Urine Trace /hpf; RBC Urine 0-2 /hpf (0-2); Squamous Epithelial Cell Urine Rare /hpf (Few); WBC Urine 0-3 /hpf
[2022-10-22 02:14] LABS: Alanine Aminotransferase 18 U/L (6-35); Albumin Level 4.3 g/dL (3.5-5.1); Alkaline Phosphatase 83 U/L (38-126); Anion Gap 5 mmol/L (8-16); Aspartate Amino Transferase 24 U/L (14-36); Bilirubin,Total 0.5 mg/dL (0.2-1.3); Blood Urea Nitrogen 16 mg/dL (7-17); Calcium 9.1 mg/dL (8.4-10.2); Carbon Dioxide 23 mmol/L (22-30); Chloride 107 mmol/L (98-107); Estimated CRCL calculation 69 ml/min; Estimated Glomerular Filt Rate > 60; Glucose 108 mg/dL (65-110); Lipase 243 U/L (23-300); Magnesium 1.9 mg/dL (1.6-2.3); Potassium 3.6 mmol/L (3.4-5.0); Sodium 135 mmol/L (137-145); Troponin I < 0.012 ng/mL (0.000-0.034)
[2022-10-22 02:20] LABS: INR 1.1; Partial Thromboplastin Time 29.5 SECONDS (22.3-36.8)
[2022-10-22 02:49] LABS: Add Urine Microscopic? YES
[2022-10-22 03:05] LABS: NT Pro B Type Natriuretic Pept < 20 pg/mL (19.9-100)
== END 2022-10-22 03:40 | disposition home or self-care (01) ==
PROVIDERS: Emergency Provider Emergency Medicine; PCP Emergency Medicine
DX: I10 Essential (primary) hypertension (principal); J44.9 Chronic obstructive pulmonary disease, unspecified; Z90.49 Acquired absence of other specified parts of digestive tract; Z90.710 Acquired absence of both cervix and uterus; F17.200 Nicotine dependence, unspecified, uncomplicated; R00.1 Bradycardia, unspecified; R06.89 Other abnormalities of breathing
CPT/HCPCS: 36415; 71045; 80053; 81001; 83690; 83735; 83880; 84484; 85025; 85610; 85730; 93005; 99284

== ENCOUNTER 2023-05-12 15:23 | Emergency (ER) | payer MEDICARE, SELFPAY ==
[2023-05-12 15:34] VITALS: BP 148/62; PULSE 62; RESP 16; TEMP 36.3; O2SAT 98
--- NOTE | 2023-05-12 16:25 | ED.SKABFB ---
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 Patient reports rash only on her legs and it is burning and itchy. MD complaint: other (rash versus insect bites) Onset (ago): week(s) (1) Location: LLE and RLE Severity scale (1-10): 6 Quality: burning and pruritic Treatments prior to arrival: other (cleansed legs with peroxide, itching cream) Related Data Allergies Allergy/AdvReac Type Severity Reaction Status Date / Time No Known Allergies Allergy Verified 05/12/23 15:54 Review of Systems Review of Systems: CONSTITUTIONAL: Denies fever, chills, or sweats. CARDIOVASCULAR: Denies chest pain, palpitations, or edema. RESPIRATORY: Denies cough or dyspnea. SKIN: Reports small raised lesions with some redness and itching to lower legs only. MUSCULOSKELETAL: Denies joint pain or myalgia. NEUROLOGIC: Denies headache, numbness, or weakness. All systems reviewed & are unremarkable except as noted in HPI and below PMFSH Past Medical History Medical History COPD (chronic obstructive pulmonary disease) Hypertension Seasonal allergies Surgical History Surgical History History of bowel resection History of delivery History of hernia surgery History of hysterectomy History of tubal ligation Family History Family History Sibling Asthma Diabetes mellitus Hypertension Mother Cerebrovascular accident Hypertension Breast cancer Father Chronic obstructive pulmonary disease Lung cancer Social History Social History Social History: Ms. Palumbo lives at home with her of 47 years. She is independent in her daily activities living. She is on disability. Her primary care provider is Dr. Andrade in [place]. She designates her daughter, Virginie, as her surrogate decision maker. She would like to be a full code. Years smoked: 25 Smoking status: Current every day smoker Alcohol intake: never Substance use type: marijuana Other substance usage details: Marijuana use 2x/month Lack of Transportation: No Lack of Food: Never True Current Housing: I Have Housing Concerned About Future Housing: Decline to Answer Difficulty Paying Gas/Electric Bills: No Difficulty Paying for Meds: No Currently Unemployed: No Education: Trade/Vocational Certificate Difficulty w/ Childcare or Family Care: No Living arrangements: with family Spiritual care concerns: No Comments At time of signature, agree with nursing past medical, surgical, social and family history. There is no relevant family history pertinent to the presenting complaint Exam Narrative: GENERAL: Well-appearing, well-nourished, and in no acute distress. HEAD: Normocephalic, atraumatic. EYES: PERRLA, conjunctivae clear, and EOMI. ENT: Mucous membranes moist. Oropharynx without edema, erythema or lesions. NECK: Supple. No lymphadenopathy CHEST: Clear to auscultation. No respiratory distress.SAO2 98% on room air HEART: Regular rate and rhythm. SKIN: Warm, dry.? Patches of small red raised lesion only on bilateral lower legs, itchy and burning stated, no drainage rash versus
== END 2023-05-12 16:59 | disposition home or self-care (01) ==
PROVIDERS: Emergency Provider Registered Nurse; PCP Emergency Medicine
DX: S80.862A Insect bite (nonvenomous), left lower leg, initial encounter (principal); S80.861A Insect bite (nonvenomous), right lower leg, initial encounter; W57.XXXA Bitten or stung by nonvenomous insect and other nonvenomous arthropods, initial encounter; F17.210 Nicotine dependence, cigarettes, uncomplicated; F12.90 Cannabis use, unspecified, uncomplicated; J44.9 Chronic obstructive pulmonary disease, unspecified; I10 Essential (primary) hypertension
CPT/HCPCS: 99213; G0463

== ENCOUNTER 2023-08-19 10:43 | Outpatient (CLI) | payer MEDICARE, SELFPAY ==
[2023-08-19 18:58] LABS: Basophils Percent Auto 0.3 % (0.2-1.2); Eosinophils Absolute Auto 0.3 K/mm3 (0-0.3); Hematocrit 44.3 % (37.0-47.0); Hemoglobin 14.4 g/dL (12.0-15.0); Immature Granulocyte Absolute 0.04 K/mm3 (0.00-0.031); Immature Granulocyte Percent A 0.4 % (0-0.5); Lymphocytes Absolute Auto 2.82 K/mm3 (0.9-3.2); Lymphocytes Percent Auto 25.6 % (18.3-44.2); Mean Corpuscular HGB Conc 32.5 g/dl (32-36); Mean Corpuscular Hemoglobin 28.7 pg (26-34); Mean Corpuscular Volume 88.2 fl (80-100); Mean Platelet Volume 10.4 fl (7.4-10.4); Monocytes Absolute Auto 0.5 K/mm3 (0.1-0.6); Monocytes Percent Auto 4.9 % (2.6-8.5); Neutrophils Absolute Auto 7.3 K/mm3 (1.3-6.7); Neutrophils Percent Auto 65.8 % (45.5-73.1); Platelet Count Result 239 k/mm3 (150-375); Red Blood Count 5.02 M/mm3 (4.2-5.4); Red Cell Distribution Width 14.6 % (11.5-14.5)
[2023-08-19 19:26] LABS: Alanine Aminotransferase 12 U/L (6-35); Albumin Level 4.2 g/dL (3.5-5.1); Alkaline Phosphatase 84 U/L (38-126); Anion Gap 7 mmol/L (8-16); Aspartate Amino Transferase 25 U/L (14-36); Bilirubin,Total 0.5 mg/dL (0.2-1.3); Blood Urea Nitrogen 12 mg/dL (7-17); Calcium 9.6 mg/dL (8.4-10.2); Carbon Dioxide 27 mmol/L (22-30); Chloride 106 mmol/L (98-107); Cholesterol 168 mg/dL (0-200); Estimated Glomerular Filt Rate > 60; Glucose 99 mg/dL (65-110); HDL Direct 49 mg/dL; Potassium 4.5 mmol/L (3.4-5.0); Sodium 140 mmol/L (137-145); Triglycerides 99 mg/dL (<150)
[2023-08-19 19:37] LABS: LDL Cholesterol Direct 80 mg/dL
[2023-08-19 21:50] LABS: Hemoglobin A1C 6.2 % (<5.7)
== END 2023-08-19 10:44 | disposition home or self-care (01) ==
LOC: ANHGOSHLAB 10:45
PROVIDERS: PCP Emergency Medicine; Visit Provider Emergency Medicine
DX: J44.9 Chronic obstructive pulmonary disease, unspecified (principal); I10 Essential (primary) hypertension; R73.03 Prediabetes
CPT/HCPCS: 36415; 80053; 80061; 83036; 84443; 85025

== ENCOUNTER 2023-10-01 16:45 | Outpatient (CLI) | payer MEDICARE, SELFPAY ==
--- NOTE | ~2023-10-01 | XR_ITS ---
XR abdomen/kub 1V 10/01/2023 17:00 INDICATION: Constipation TECHNIQUE: KUB COMPARISON: 11/10/2012 FINDINGS: Bowel gas pattern is normal. Moderate colonic fecal loading. There is no evidence of free a ir, mass, organomegaly, ascites or obstruction. No abnormal calculi are seen. The bones appear inta ct. IMPRESSION: 1: No acute abdominal abnormality identified. Reviewed, dictated and finalized at location B. BILITATION CLERK
== END 2023-10-01 16:46 | disposition home or self-care (01) ==
LOC: ANHIMG 16:47
PROVIDERS: PCP Emergency Medicine; Visit Provider Nurse Practitioner Family
DX: K59.09 Other constipation (principal)
CPT/HCPCS: 74018

== ENCOUNTER 2023-12-12 15:47 | Outpatient (CLI) | payer MEDICARE, SELFPAY ==
--- NOTE | ~2023-12-12 | MM_ITS ---
EXAMINATION: MM screening eleazar BI w samantha HISTORY: Screening TECHNIQUE: Craniocaudal and mediolateral oblique 3-D tomosynthesis images were obtained and synthetic 2-D images were generated. CAD analysis was submitted and interpreted. COMPARISON: No prior mammogram is available for comparison at this institution. BREAST PARENCHYMAL COMPOSITION: There are scattered areas of fibroglandular density. FINDINGS: There is no evidence of suspicious mass, calcification, or architectural distortion to sugg est malignancy in either breast. There has been no suspicious interval change. IMPRESSION: 1. No mammographic evidence of malignancy. 2. Recommend routine screening mammography in one year. BI-RADS Category 1: Negative Reviewed, dictated and finalized at location A.
== END 2023-12-12 15:48 | disposition home or self-care (01) ==
PROVIDERS: PCP Emergency Medicine; Visit Provider Emergency Medicine
DX: Z12.31 Encounter for screening mammogram for malignant neoplasm of breast (principal)
CPT/HCPCS: 77063; 77067

== ENCOUNTER 2024-01-22 15:59 | Emergency (ER) | payer MEDICARE, SELFPAY ==
[2024-01-22 16:19] VITALS: BP 140/58; PULSE 56; RESP 28; TEMP 36.2; O2SAT 98
--- NOTE | 2024-01-22 16:26 | ECG_ITS ---
SEE SCANNED COPY FOR CONFIRMED REPORT MTDD
--- NOTE | 2024-01-22 16:28 | ED.SOB ---
HPI - SOB/Dyspnea General Chief Complaint: Shortness of Breath/Dyspnea Stated Complaint: SOB,asthmatic Time Seen by Provider: 01/22/24 16:20 Source: patient, RN notes reviewed and old records reviewed Mode of arrival: ambulatory Limitations: no limitations History of Present Illness HPI Narrative: Patient presents today complaining of a 10 day history of productive cough and wheezing. Patient had an old Z-Elijah at home that she took, and finished 4 days ago. States he did make her feel somewhat better. Denies fever, congestion, rhinorrhea, sore throat. History of asthma and COPD. She takes Trelegy, albuterol inhaler, and DuoNebs. She has been taking her nebulizer treatments 3-4 times per day, which do help. She for got to take 1 prior to going to work today. Review of patient's chart shows that her heart rate is typically in the 50s. Patient smokes 5 cigarettes per day. Related Data Allergies Allergy/AdvReac Type Severity Reaction Status Date / Time No Known Allergies Allergy Verified 09/23/23 15:24 Review of Systems Review of Systems: CONSTITUTIONAL: Denies body aches, fever, chills, or sweats. EYES: Denies visual changes, redness, or discharge. ENT: Denies rhinorrhea, congestion, sore throat, or otalgia. CARDIOVASCULAR: Denies chest pain, palpitations, or edema. RESPIRATORY: + cough, wheezing. GASTROINTESTINAL: Denies abdominal pain, nausea, vomiting, or diarrhea. GENITOURINARY: Denies dysuria or hematuria. SKIN: Denies rash, itching, or wounds. MUSCULOSKELETAL: Denies back pain, joint pain, or myalgia. NEUROLOGIC: Denies headache, numbness, tingling, or weakness. PSYCH: Denies depression or anxiety. [facility] Past Medical History Medical History COPD (chronic obstructive pulmonary disease) Encounter for screening colonoscopy Hypertension Seasonal allergies Surgical History Surgical History History of bowel resection History of delivery History of hernia surgery History of hysterectomy History of tubal ligation Family History Family History Sibling Asthma Diabetes mellitus Hypertension Mother Cerebrovascular accident Hypertension Breast cancer Father Chronic obstructive pulmonary disease Lung cancer Social History Social History Social History: Ms. Palumbo lives at home with her of 47 years. She is independent in her daily activities living. She is on disability. Her primary care provider is Dr. Andrade in [place]. She designates her daughter, Virginie, as her surrogate decision maker. She would like to be a full code. Smoking packs per day: 0.25 Smoking cigarettes per day: 5.0 Years smoked: 25 Smoking pack-years: 6.25 Smoking status: Current every day smoker Alcohol intake: never Substance use type: marijuana Other substance usage details: Marijuana use 2x/month Lack of Transportation: No Lack of Food: Never True Current Housing: I Have Housing Concerned About Future Housing: Decline to Answer Difficulty Paying Gas/Electric Bills: No Difficulty Paying for Meds: No Currently Unemployed: No Education: Trade/Vocational Certificate Difficulty w/ Childcare or Family Care: No Living arrangements: with family Spiritual care concerns: No Comments At time of signature, I have reviewed and agree with nursing past medical, surgical, social and family history unless otherwise noted. Please see nursing chart for further information. There is no relevant family history pertinent to the presenting complaint Exam Narrative: GENERAL: Well-appearing, well-nourished, and in no acute distress. HEAD: Normocephalic, atraumatic. EYES: EOMI. No redness or drainage. Conjunctivae normal. ENT: Mucous membranes pink
[2024-01-22] MEDS: dexAMETHasone SOD PHOS INJ 10 MG/ML 1 ML VIAL IM (16:34)
[2024-01-22 16:48] VITALS: PULSE 58; RESP 22; O2SAT 98
== END 2024-01-22 16:48 | disposition home or self-care (01) ==
PROVIDERS: Emergency Provider Nurse Practitioner; PCP Emergency Medicine
DX: J44.1 Chronic obstructive pulmonary disease with (acute) exacerbation (principal); F17.210 Nicotine dependence, cigarettes, uncomplicated; F12.90 Cannabis use, unspecified, uncomplicated; I10 Essential (primary) hypertension
CPT/HCPCS: 93005; 96372; 99213; G0463; J1100

== ENCOUNTER 2025-02-04 15:59 | Emergency (ER) | payer MEDICARE, SELFPAY ==
[2025-02-04 16:13] VITALS: BP 127/56; PULSE 52; RESP 16; TEMP 36.6; O2SAT 100
--- NOTE | 2025-02-04 16:31 | ED_ITS ---
HPI - SOB/Dyspnea General Chief Complaint: Shortness of Breath/Dyspnea Stated Complaint: SOB Source: patient Mode of arrival: ambulatory Limitations: no limitations History of Present Illness HPI Narrative: Patient is a 64 year old female who presents to the clinic complaining of wheezing, cough, and nasal congestion x 4 days. She has been using her inhaler as prescribed, but needs a refill. She has not been taking any medication over the counter. Denies any difficulty swallowing, body aches, chills, fevers, nausea, or sore throat. Related Data Allergies Allergy/AdvReac Type Severity Reaction Status Date / Time hayfever Allergy Mild Sneezing Uncoded 02/04/25 16:04 Review of Systems Review of Systems: CONSTITUTIONAL: Denies body aches, fever, chills, or sweats. Reports EYES: Denies visual changes, redness, or discharge. ENT: Reports rhinorrhea and congestion. Denies sore throat or otalgia. CARDIOVASCULAR: Denies chest pain, palpitations, or edema. RESPIRATORY: Reports cough. Reports wheezing. GASTROINTESTINAL: Denies abdominal pain, nausea, vomiting, or diarrhea. GENITOURINARY: Denies dysuria or hematuria. SKIN: Denies rash, itching, or wounds. MUSCULOSKELETAL: Denies back pain, joint pain, or myalgia. NEUROLOGIC: Denies headache, numbness, tingling, or weakness. PSYCH: Denies depression or anxiety. All systems reviewed & are unremarkable except as noted in HPI and below PMFSH Past Medical History Medical History Encounter for screening colonoscopy Seasonal allergies Hypertension COPD (chronic obstructive pulmonary disease) Surgical History Surgical History History of hysterectomy History of bowel resection History of tubal ligation History of hernia surgery History of delivery Family History Family History Sibling Asthma Diabetes mellitus Hypertension Mother Cerebrovascular accident Hypertension Breast cancer Father Chronic obstructive pulmonary disease Lung cancer Social History Social History Social History: Ms. Palumbo lives at home with her of 47 years. She is independent in her daily activities living. She is on disability. Her primary care provider is Dr. Andrade in [place]. She designates her daughter, Virginie, as her surrogate decision maker. She would like to be a full code. Smoking packs per day: 0.25 Smoking cigarettes per day: 5.0 Years smoked: 25 Smoking pack-years: 6.25 Smoking status: Current every day smoker Alcohol intake: never Substance use type: marijuana Other substance usage details: Marijuana use 2x/month Lack of Transportation: No Lack of Food: Never True Current Housing: I Have Housing Concerned About Future Housing: Decline to Answer Difficulty Paying Gas/Electric Bills: No Difficulty Paying for Meds: No Currently Unemployed: No Education: Trade/Vocational Certificate Difficulty w/ Childcare or Family Care: No Living arrangements: with family Spiritual care concerns: No Comments At time of signature, I have reviewed and agree with nursing past medical, surgical, social and family history unless otherwise noted. Please see nursing chart for further information. There is no relevant family history pertinent to the presenting complaint. Exam Narrative: GENERAL: Well-appearing, well-nourished, and in no acute distress. EYES: EOMI. No redness or drainage. Conjunctivae normal. ENT: Mucous membranes pink and moist. Nares clear. TMs normal bilaterally. No Throat Erythema or tonsillar exudate, uvula midline. Nasal congestion noted. NECK: Normal AROM. Supple. No lymphadenopathy. CHEST: No respiratory distress. Wheezing noted on inhalation and exhalation to auscultation. HEART: Regular rate and rhythm. No murmur appreciated. Normal peripheral pulses. ABDOMEN: Soft, nontender, nondistended, normal active bowel sounds. SKIN: Warm, dry, no rash. Capillary refill normal. Normal skin turgor. NEURO: No focal deficits. Alert and oriented x3. Gait steady. PSYCH: Normal affect. No signs of depression or anxiety. Course Course Level of Care: Express Care Visit Vital Signs Vital signs: Vital Signs Temperature 97.9 F 02/04/25 16:13 Pulse Rate 52 L 02/04/25 16:13 Respiratory Rate 16 02/04/25 16:13 Blood Pressure 127/56 L 02/04/25 16:13 Pulse Oximetry 100 02/04/25 16:13 Oxygen Delivery Room Air 02/04/25 16:13 Temperature 97.9 F 02/04/25 16:13 Pulse Rate 52 L 02/04/25 16:13 Respiratory Rate 16 02/04/25 16:13 Blood Pressure 127/56 L 02/04/25 16:13 Pulse Oximetry 100 02/04/25 16:13 Oxygen Delivery Room Air 02/04/25 16:13 Reviewed. MDM - SOB/Dyspnea MDM Narrative Medical decision making narrative: Discussed physical exam findings. Antibiotic given for sinusitis. Steroid given for wheezing. Albuterol refilled for patient. Advised supportive measures and signs/symptoms to go to the ER. Pt is appropriate for outpatient treatment and follow up. Differential Diagnosis Differential diagnosis: Likely other (sinusitis, bronchitis, URI, viral syndrome, pneumonia ) Critical Care Time Critical Care Time Critical Care Time: No Discharge Plan Discharge Clinical Impression: Sinobronchitis Patient Disposition: Home Condition: Stable Instructions: Antibiotic Form, Acute Bronchitis (ED) Additional Instructions: Take antibiotic as prescribed. Use inhaler as prescribed. Take Steroid as prescribed. Recommend Flonase spray and Zyrtec (or Claritin/Kina) over the counter Cough syrup may cause drowsiness; avoid driving or take it at night time. Tylenol every 8 hours as needed for pain Symptomatic treatment includes: rest, fluids, and increase humidity of the air at home. Follow up with your primary care provider in 1 week. Go to the ER for worsening symptoms or concerns. Patient Language: Greek Prescriptions: New albuterol sulfate [Ventolin HFA] 90 mcg/actuation HFA aerosol inhaler 2 puff inhalation QID PRN (Reason: shortness of breath or wheezing) Qty: 6.7 0RF prednisone 20 mg tablet 40 mg PO DAILY 5 Days Qty: 10 0RF azithromycin [Zithromax Z-Elijah] 250 mg tablet See Rx Instructions PO .COMPLEX Qty: 6 0RF Rx Instructions: For 250 mg dose pack: take 500 mg today (day 1), then 250 mg for 4 days (days 2-5) No Action spironolactone 25 mg tablet 25 mg PO DAILY Qty: 90 3RF Trelegy Ellipta 200-62.5-25 mcg blister with device 1 inh inhalation DAILY Qty: 180 1RF amlodipine 10 mg tablet 10 mg PO DAILY Qty: 90 1RF simvastatin 20 mg tablet See Rx Instructions .ROUTE .COMPLEX Qty: 90 1RF Dose Instruction: TAKE 1 TABLET BY MOUTH DAILY Rx Instructions: TAKE 1 TABLET BY MOUTH DAILY cyclobenzaprine 10 mg tablet 10 mg PO TID PRN (Reason: muscle spasm) Qty: 30 2RF nicotine 21 mg/24 hr patch 24 hour 1 patch transdermal DAILY Qty: 28 0RF Saline Mist 0.65 % Aerosol,[place] 1 spray intranasal Q6HR PRN (Reason: Congestion) Qty: 44 0RF montelukast 10 mg tablet 10 mg PO DAILY Qty: 90 1RF nebivolol 10 mg tablet See Rx Instructions .ROUTE .COMPLEX Qty: 90 0RF Dose Instruction: TAKE 1 TABLET BY MOUTH DAILY Rx Instructions: TAKE 1 TABLET BY MOUTH DAILY ipratropium-albuterol 0.5 mg-3 mg(2.5 mg base)/3 mL solution for nebulization See Rx Instructions .ROUTE .COMPLEX Qty: 180 0RF Dose Instruction: USE 3 ML VIA NEBULIZER EVERY 6 HOURS NEEDED FOR SHORTNESS OF BREATH OR WH EEZING Rx Instructions: USE 3 ML VIA NEBULIZER EVERY 6 HOURS NEEDED FOR SHORTNESS OF BREATH OR WHEEZING albuterol sulfate 90 mcg/actuation HFA aerosol inhaler See Rx Instructions .ROUTE .COMPLEX Qty: 8.5 2RF Dose Instruction: INHALE 2 PUFFS BY MOUTH EVERY 6 HOURS NEEDED FOR SHORTNESS OF BREATH Rx Instructions: INHALE 2 PUFFS BY MOUTH EVERY 6 HOURS NEEDED FOR SHORTNESS OF BREATH Follow-up/Referrals: Chiara Estrada, [employer] [Primary Care Provider] - Stand Alone Forms: Work/School Release IP Time of Disposition: 16:34
== END 2025-02-04 16:40 | disposition home or self-care (01) ==
PROVIDERS: PCP Nurse Practitioner
DX: J32.9 Chronic sinusitis, unspecified (principal); J40 Bronchitis, not specified as acute or chronic; F17.210 Nicotine dependence, cigarettes, uncomplicated; F12.90 Cannabis use, unspecified, uncomplicated; I10 Essential (primary) hypertension; J44.9 Chronic obstructive pulmonary disease, unspecified
CPT/HCPCS: 99213; G0463

== ENCOUNTER 2025-02-08 08:23 | Outpatient (CLI) | payer MEDICARE, SELFPAY ==
[2025-02-08 14:29] LABS: Hematocrit 42.3 % (37.0-47.0); Hemoglobin 13.5 g/dL (12.0-15.0); Mean Corpuscular HGB Conc 31.9 g/dl (32-36); Mean Corpuscular Hemoglobin 28.4 pg (26-34); Mean Corpuscular Volume 89.1 fl (80-100); Mean Platelet Volume 10.2 fl (7.4-10.4); Platelet Count Result 242 k/mm3 (150-375); Red Blood Count 4.75 M/mm3 (4.2-5.4); Red Cell Distribution Width 15.4 % (11.5-14.5); White Blood Count 17.2 K/mm3 (4.5-10.0)
[2025-02-08 14:50] LABS: Alanine Aminotransferase 17 U/L (6-35); Alkaline Phosphatase 70 U/L (38-126); Anion Gap 9 mmol/L (4-12); Aspartate Amino Transferase 36 U/L (14-36); Bilirubin,Total 0.2 mg/dL (0.2-1.3); Blood Urea Nitrogen 19 mg/dL (7-17); Calcium 9.3 mg/dL (8.4-10.2); Carbon Dioxide 26 mmol/L (22-30); Chloride 108 mmol/L (98-107); Cholesterol 169 mg/dL (0-200); Estimated Glomerular Filt Rate 60; Glucose 66 mg/dL (65-110); HDL Direct 66 mg/dL; Sodium 143 mmol/L (137-145); Triglycerides 64 mg/dL (<150); Vitamin D 25 Hydroxy 21.6 ng/mL
[2025-02-08 15:01] LABS: LDL Cholesterol Direct 63 mg/dL
== END 2025-02-08 08:24 | disposition home or self-care (01) ==
LOC: ANHGOSHLAB 08:25
PROVIDERS: PCP Nurse Practitioner; Visit Provider Nurse Practitioner
DX: R73.03 Prediabetes (principal); E55.9 Vitamin D deficiency, unspecified; E78.5 Hyperlipidemia, unspecified; E03.9 Hypothyroidism, unspecified; I10 Essential (primary) hypertension
CPT/HCPCS: 36415; 80053; 80061; 82306; 83036; 84443; 85027

== ENCOUNTER 2025-05-24 13:58 | Outpatient (CLI) | payer MEDICARE, SELFPAY ==
--- OUTSIDE RECORDS SUMMARY | 2015-09-08 05:15 | XMS_ITS | Continuity of Care Document ---
Author Organization [facility] Address [address] [place] [address] Phone Care Team Providers Care Local Telephone Operator Name Role Phone Unavailable Unavailable Unavailable Medications Medication Instructions Dosage Effective Dates (start - stop) Status Comments amoxicillin 875 mg tablet take 1 tablet by oral route every 12 hours 875 MG - Active Procedures Procedure Date Limit oral eval problem focused 015 Surgical extr erupted tooth Periapical Radiographic, first Image Aug Advance Directives Directive Yes / No Effective Date File Name No Information Encounters Encounter Description Practice Location Reason(s) For Visit Diagnoses Date Provider Providers Copied on Encounter [facility] , [address], [place], [place], [id number], [place] tel:[phone] [facility] [place] Aggressive periodontiti s, localized No Information Family History Family Member Type Diagnosis Age At Onset No Information Payers Payer name Insurance type Covered constitution party ID Authoriza tion(s) No Information Social History Type Description Quantity Date Captured Comments Sex Female Smoking Status No Information Chief Complaint And Reason For Visit No Information Reason For Referral Reason For Referral No Information History Of Present Illness Encounter Date Complaint History Of Prese nt Illness No Information Functional Status Date Functional Assessmen t No Information Instructions Date Instruction Additional Infor mation No Information Assessments Type Assessment Date No Information Patient Care Teams Name Effective Dates (start - stop) Status Members No Information
--- NOTE | ~2025-05-24 | MM_ITS ---
EXAMINATION: MM screening eleazar BI w samantha HISTORY: Screening TECHNIQUE: Craniocaudal and mediolateral oblique 3-D tomosynthesis images were obtained and synthetic 2-D images were generated. CAD analysis was submitted and interpreted. COMPARISON: 12/12/2023 BREAST PARENCHYMAL COMPOSITION: Not Dense: The breasts are almost entirely fatty. FINDINGS: There is no evidence of suspicious mass, calcification, or architectural distortion to suggest malignancy in either breast. [There has been no significant interval change. IMPRESSION: 1. No mammographic evidence of malignancy. Recommend routine screening mammography in one year. BI-RADS Category 1: Negative Reviewed, dictated, and finalized at [facility]. Reviewed, dictated and finalized at [facility]. IMPRESSION: 1. No mammographic evidence of malignancy. Recommend routine screening mammogra phy in one year. BI-RADS Category 1: Negative
== END 2025-05-24 13:59 | disposition home or self-care (01) ==
LOC: ANHFOHIMG 13:59
PROVIDERS: PCP Nurse Practitioner; Visit Provider Nurse Practitioner Family
DX: Z12.31 Encounter for screening mammogram for malignant neoplasm of breast (principal)
CPT/HCPCS: 77063; 77067